=== PATIENT | female | born 1930 | race Asian ===

== ENCOUNTER 2018-09-18 10:07 | Inpatient (IN) | payer OTHER, MEDICARE ==
[~2018-09-18] VITALS: Ht 157.5 cm; Wt 49.9 kg
--- NOTE | 2018-09-18 10:07 | NUR ---
PT BIBA BLS TO ER BED 04
[2018-09-18 10:09] VITALS: BP 119/42
--- NOTE | 2018-09-18 10:31 | NUR ---
BIBA FROM [facility] FOR G TUBE REPLACEMENT. PER EMS PT PULL OUT G TUBE THIS AM. NEUROLOGICAL BASELINE. MED HX : HTN, DM, CAD, HYPERLIPIDEMIA, R HEMIPLEGIA, GASTROSTOMY, APHASIA, SIEZURE DISORDER.
[2018-09-18] MEDS ORDERED: NACL 0.9% 1,000 ML IV SCH (12:46)
[2018-09-18] MEDS ORDERED: ALBUTEROL 0.083% 2.5 MG/3 ML NEBU IH PRN (12:50)
[2018-09-18] MEDS ORDERED: ONDANSETRON 4 MG/2 ML VIAL IVP PRN (12:50)
[2018-09-18] MEDS ORDERED: MORPHINE SULFATE 2 MG/ML SYR IVP PRN (12:50)
[2018-09-18 13:13] LABS: BASOPHILS % (AUTO) 0.4 % (0.0-2.0); EOSINOPHILS # (AUTO) 0.5 K/uL (0-0.4); EOSINOPHILS % (AUTO) 6.6 % (0.0-4.0); HEMATOCRIT 35.6 % (36-48); HEMOGLOBIN 11.5 g/dL (12.0-16.0); LYMPHOCYTES # (AUTO) 1.7 K/uL (2.5-16.5); LYMPHOCYTES % (AUTO) 21.1 % (20.5-51.1); MEAN CORPUSCULAR HEMOGLOBIN 29 pg (27-31); MEAN CORPUSCULAR HGB CONC 32 g/dL (33-37); MEAN CORPUSCULAR VOLUME 89.9 fL (80-94); MONOCYTES # (AUTO) 0.6 K/uL (0.8-1.0); MONOCYTES % (AUTO) 7.2 % (1.7-9.3); NEUTROPHILS # (AUTO) 5.1 K/uL (1.8-7.7); NEUTROPHILS % (AUTO) 64.7 % (42.2-75.2); PLATELET COUNT (AUTO) 308 K/uL (140-450); RED BLOOD CELL COUNT(AUTO) 3.96 MIL/uL (4.20-5.40); RED CELL DISTRIBUTION WIDTH 16.8 % (11.6-13.7); WHITE BLOOD COUNT (AUTO) 7.9 K/uL (4.8-10.8)
[2018-09-18 13:31] LABS: ALBUMIN 3.1 g/dL (3.4-5.0); ANION GAP 9.7 (8-16); ASPARTATE AMINOTRANSFERASE 24 U/L (15-37); CARBON DIOXIDE 28.7 mmol/L (21-32); CHLORIDE 106 mmol/L (98-107); CREATININE 0.9 mg/dL (0.6-1.3); GLUCOSE 127 mg/dL (74-106); POTASSIUM 3.4 mmol/L (3.5-5.1); SODIUM SERUM 141 mmol/L (136-145); TOTAL BILIRUBIN 0.5 mg/dL (0.0-1.0); UREA NITROGEN, BLOOD 20 mg/dL (7-18)
[2018-09-18] MEDS ORDERED: KEP500L GT (13:34)
[2018-09-18] MEDS ORDERED: ASCO500T45 GT (13:34)
[2018-09-18] MEDS ORDERED: ATOR10TA GT (13:34)
[2018-09-18] MEDS ORDERED: FAMO10TA93 GT (13:34)
[2018-09-18] MEDS ORDERED: ASPI-1677 GT (13:34)
[2018-09-18] MEDS ORDERED: FURO-572 GT (13:34)
[2018-09-18] MEDS ORDERED: WARF-18 GT (13:34)
[2018-09-18] MEDS ORDERED: METO25TA GT (13:34)
[2018-09-18] MEDS ORDERED: LACT-2 (13:34)
[2018-09-18] MEDS ORDERED: LACT500C2 GT (13:34)
--- NOTE | 2018-09-18 14:19 | NUR ---
Patient will be admitted to care of DR LYNCH. Admited to TELE. Will go to room 108B. Belongings list completed. Report to ISIDRO AVILA.
[2018-09-18] MEDS ORDERED: LORazepam 2 MG/ML VIAL ONE (18:00)
--- NOTE | 2018-09-18 19:16 | NUR ---
RECEIVED REPORT FROM DAY SHIFT NURSE. PT SLEEPING IN BED. NO S/S OF PAIN OR SOB. PLATA CATH TUBING IN THE G-TUBE SITE. IV TO RIGHT FA #22G, D5NS AT 75 ML/HR INFUSING WELL. PT HAS RIGHT HEMIPLEGIA. SKIN INTACT. PT'S SON AT BEDSIDE. SAFETY PRECAUTION IN PLACE. CALL LIGHT WITHIN REACH.
--- NOTE | 2018-09-18 19:50 | NUR ---
DR. BELL CAME IN FOR INSERTION OF G-TUBE. PT TOLERATED PROCEDURE WELL. PT'S SON AT BEDSIDE. ABDOMINAL BINDER IN PLACE. ORDERED GASTROGRAFIN AND KUB.
--- NOTE | 2018-09-18 20:00 | NUR ---
CALLED RADIOLOGY FOR GASTROGRAFIN AND KUB ORDER. PER DANE, X-RAY TECH WENT TO ER AND SHE WILL LET HER KNOW ABOUT THE ORDER.
[2018-09-18] MEDS ORDERED: LORazepam 2 MG/ML VIAL IVP PRN (20:25)
[2018-09-18] MEDS ORDERED: INSULIN LISPRO SLIDING SCALE 100 UNITS/ML VIAL SUBQ PRN (20:30)
[2018-09-18] MEDS: DEXT 5% /NACL 0.9% 1,000 ML IV SCH (20:30)
--- NOTE | 2018-09-18 20:30 | NUR ---
CALLED RADIOLOGY TO FOLLOW UP GASTROGRAFIN AND KUB XRAY ORDER. PER HERVE BHAKTA SHE'S STILL BUSY IN THE ER. SHE'LL CALL ME WHAT TIME SHE CAN DO THE PROCEDURE.
[2018-09-18] MEDS: BLOOD GLUCOSE MONITORING 1 DEV DEV FS SCH (21:15)
--- NOTE | 2018-09-18 22:40 | NUR ---
X-RAY TECH IN THE ROOM FOR GASTROGRAFIN AND KUB AT BEDSIDE. PT TOLERATED PROCEDURE WELL.
--- NOTE | 2018-09-18 23:15 | NUR ---
DR. BELL MADE AWARE OF PT'S XRAY OF ABDOMEN RESULT. MD ORDERED TO START FEEDING TUBE OSMOLITE 1.2 ( PER PT'S RECORD FROM [facility], PT IS ON OSMOLITE 1.2) AT 30 ML/HR, H20 FLUSH 100 CC EVERY 4 HRS.
[2018-09-19] VITALS: BP 108/57
--- NOTE | 2018-09-19 00:50 | NUR ---
PER HOUSE SUP, WE ONLY HAVE OSMOLITE 1.5. TRIED TO CALL DR. BELL X 3 TIMES, NO ANSWER. CHARGE NURSE MADE AWARE. PER CN, WE CAN GIVE OSMOLITE 1.[address] CALL [address] BELL TOMORROW MORNING.
--- NOTE | 2018-09-19 01:00 | NUR ---
STARTED FEEDING OSMOLITE 1.5 AT 30 ML/HR, H20 FLUSH 100ML Q4HRS. ASPIRATION PRECAUTION IN PLACE.
--- NOTE | 2018-09-19 02:23 | NUR ---
PT AWAKE, APHASIC. NO S/S OF PAIN OR SOB. PT TOLERATING FEEDING WELL. PT KEPT DRY AND COMFORTABLE. ASPIRATION AND SAFETY PRECAUTIONS IN PLACE.
--- NOTE | 2018-09-19 04:30 | NUR ---
PT SLEEPING. RESP EVEN AND UNLABORED. NO S/S OF PAIN OR DISCOMFORT. PT TOLERATING FEEDING WELL.
[2018-09-19] MEDS: BLOOD GLUCOSE MONITORING 1 DEV DEV FS SCH ×4 (06:05→21:00)
[2018-09-19 06:17] LABS: BASOPHILS # (AUTO) 0.1 K/uL (0.00-0.22); EOSINOPHILS # (AUTO) 0.7 K/uL (0-0.4)
[2018-09-19 06:22] LABS: BASOPHILS % (AUTO) 0.8 % (0.0-2.0); HEMATOCRIT 35.2 % (36-48); HEMOGLOBIN 11.3 g/dL (12.0-16.0); LYMPHOCYTES # (AUTO) 2.4 K/uL (2.5-16.5); LYMPHOCYTES % (AUTO) 23.2 % (20.5-51.1); MEAN CORPUSCULAR HEMOGLOBIN 29 pg (27-31); MEAN CORPUSCULAR HGB CONC 32 g/dL (33-37); MEAN CORPUSCULAR VOLUME 90.8 fL (80-94); MONOCYTES # (AUTO) 0.9 K/uL (0.8-1.0); MONOCYTES % (AUTO) 8.6 % (1.7-9.3); NEUTROPHILS # (AUTO) 6.2 K/uL (1.8-7.7); NEUTROPHILS % (AUTO) 60.4 % (42.2-75.2); PLATELET COUNT (AUTO) 314 K/uL (140-450); RED BLOOD CELL COUNT(AUTO) 3.87 MIL/uL (4.20-5.40); RED CELL DISTRIBUTION WIDTH 17.2 % (11.6-13.7); WHITE BLOOD COUNT (AUTO) 10.2 K/uL (4.8-10.8)
--- NOTE | 2018-09-19 06:30 | NUR ---
BLOOD SUGAR CHECKED 122. NO INSULIN COVERAGE. CHECKED G-TUBE RESIDUAL 0 ML. FEEDING INFUSING WELL. ASPIRATION PRECAUTION IN PLACE.
[2018-09-19 06:51] LABS: ALBUMIN 2.9 g/dL (3.4-5.0); ANION GAP 11.4 (8-16); ASPARTATE AMINOTRANSFERASE 142 U/L (15-37); CARBON DIOXIDE 26.4 mmol/L (21-32); CHLORIDE 111 mmol/L (98-107); CREATININE 0.9 mg/dL (0.6-1.3); GLUCOSE 133 mg/dL (74-106); POTASSIUM 3.8 mmol/L (3.5-5.1); SODIUM SERUM 145 mmol/L (136-145); TOTAL BILIRUBIN 0.4 mg/dL (0.0-1.0); UREA NITROGEN, BLOOD 18 mg/dL (7-18)
--- NOTE | 2018-09-19 07:10 | NUR ---
ENDORSED PT TO DAY SHIFT NURSE. PT IN STABLE CONDITION.
--- NOTE | 2018-09-19 07:12 | NUR ---
RECEIVED BEDSIDE REPORT FROM LEGAL WRITING PROFESSOR NURSE. PATIENT IS SLEEPING ON BED AT THIS TIME. NO SIGNS OF DISTRESS NOTED. FLACC 0. SKIN INTACT, DRY AND CLEAN. IV TO LEFT FA 22G, PATENT AND INTACT, INFUSING PER MD ORDER. IV SITE CLEAN AND DRY. G-TUBE INFUSING PER MD ORDER, PATIENT TOLERATED WELL. SCD APPLIED. SAFETY MEASURES IN PLACE. BED IN LOW POSITION, CALL LIGHT WITHIN REACH.
--- NOTE | 2018-09-19 07:56 | NUR ---
PATIENT HAS BEEN SCREENED AND CATEGORIZED HIGH NUTRITION RISK. PATIENT WILL BE SEEN WITHIN 1-2 DAYS OF ADMISSION. 09/19/18-09/20/[address]
[2018-09-19 08:00] VITALS: BP 97/49
[2018-09-19 08:33] LABS: PROTHROMBIN TIME 12.3 secs (10.8-13.4)
[2018-09-19] MEDS: FAMOTIDINE 20 MG/2 ML VIAL IVP SCH (09:41)
--- NOTE | 2018-09-19 09:45 | NUR ---
ADMINISTERED MED PER MD ORDER. PT TOLERATED WELL. PT IS RESTING ON BED AT THIS TIME. NO SIGNS OF DISTRESS NOTED.
[2018-09-19] MEDS: DEXT 5% /NACL 0.9% 1,000 ML IV SCH (09:50)
--- NOTE | 2018-09-19 11:42 | NUR ---
09/19/18 INITIAL ASSESSMENT COMPLETED PLEASE REFER TO NUTRITION ASSESSMENT UNDER CARE ACTIVITY FOR ESTIMATED NUTRITIONAL NEEDS. 1. RECOMMEND GLUCERNA AT 45 ML/HR -THIS WILL PROVIDE 1296 KCAL AND 65 GM OF PROTEIN WHICH WILL MEET 100% OF ESTIMATED KCAL NEEDS AND 108% OF ESTIMATED PROTEIN NEEDS 2. RECOMMEND FREE WATER FLUSH [address] TO FOLLOW-UP 2-3 DAYS, HIGH RISK [address]
--- NOTE | 2018-09-19 13:51 | NUR ---
Residence Hall Director Note: Luis Angel Ziegler from [facility] , patient is on a 7 day bed hold and her son Mla Jiang is patient's health care decision maker.
--- NOTE | 2018-09-19 14:51 | NUR ---
CM NOTE PER CHARGE NURSE CHIQUI, AWAITING GI DOCTOR TO CLEAR PATIENT. PER [facility] JOSELO CRAFT PH# [phone], FOR [facility] AUTH# [id number]. PER KYLAH OF [facility], WHEN PATIENT IS READY FOR DISCHARGE, PATIENT CAN GO TO RM [address] REID. PER PATIENT'S SON ROBERT SAENZ PH# [phone], HE IS AGREEABLE FOR PATIENT TO GO BACK TO [facility]. SPOKE WITH SHAKEEL OF [facility] PH# [phone] TO SET UP PATIENT'S TRANSPORT GOING BACK TO [facility] ON WILL CALL. CHARGE NURSE CHIQUI AND DONALDO AVILA AWARE.
[2018-09-19 16:00] VITALS: BP 131/57
--- NOTE | 2018-09-19 16:00 | NUR ---
Per charge nurse Bebe, Dr. Mcguire gave discharge order for pt back to SNF. Order noted.
--- NOTE | 2018-09-19 17:50 | NUR ---
Left voicemail to son Mal re: discharge to SNF order. Son Esteban at bedside visiting; notified of voicemail left for Mal. Verbalized understanding & states he will check with his brother.
--- NOTE | 2018-09-19 18:02 | NUR ---
Spoke to MARGARITA Martino from [facility]. Full report given re: pt. Informed of pick-up time by [facility] @ 1999 per Bebe charge nurse.
--- NOTE | 2018-09-19 18:57 | NUR ---
Received call back from zohreh Resendez. Mal verbalized understanding & agree with discharge plan.
--- NOTE | 2018-09-19 19:20 | NUR ---
BEDSIDE REPORT GIVEN TO SUPPLIER DEVELOPMENT MANAGER NURSE FOR CONTINUITY OF CARE. PATIENT'S SON IS AT BEDSIDE. PATIENT IS IN A STABLE CONDITION.
--- NOTE | 2018-09-19 19:30 | NUR ---
RECEIVED BEDSIDE REPORT FROM DAY SHIFT RN, PATIENT IN BED, SON AT BEDSIDE. PLAN TO TRANSFER TO [facility] AT 1999.
--- NOTE | 2018-09-19 19:45 | NUR ---
SON ASKED IF CAN NOT CHECK BLOOD GLUCOSE DUE TO PATIENT IS LEAVING. WILL HOLD ACCU CHECK.
--- NOTE | 2018-09-19 21:30 | NUR ---
ALL D/C PAPERWORK SIGNED, PATIENT READY TO BE TRANSFERRED. PATIENT BEGAN TO CRY WHEN TOLD SHE IS GOING TO [facility], STARTED SHAKING AND BREATHING RAPIDLY. SON ASKED IF SHE CAN STAY FOR ONE MORE DAY SO HE CAN FIND SOMEWHERE FOR HER TO GO, HE DOES NOT WANT HER TO GO BACK TO [facility]. CALLED DR LYNCH, CALL BACK FROM DR REILLY HE STATED ITS OKAY SHE CAN STAY. CHARGE NURSE UGO GRIGSBY.
--- NOTE | 2018-09-19 22:30 | NUR ---
STARTED IV IN LEFT FA 22 G.
--- NOTE | 2018-09-19 23:00 | NUR ---
REPOSITIONED PATIENT FOR COMFORT WILL CONTINUE TO MONITOR.
[2018-09-20] VITALS: BP 148/70
--- NOTE | 2018-09-20 | NUR ---
PATIENT SLEEPING, BED ALARM ON, V/S TAKEN ALL WITHIN BASELINE.
--- NOTE | 2018-09-20 02:00 | NUR ---
PATIENT ASLEEP IN BED NO SIGNS OF DISTRESS, WILL CONTINUE TO MONITOR.
--- NOTE | 2018-09-20 05:30 | NUR ---
NO NEW FORMULA ON UNIT, PT G-TUBE INFUSING AT 30 ML/HR.
[2018-09-20] MEDS: BLOOD GLUCOSE MONITORING 1 DEV DEV FS SCH ×4 (06:20→20:02)
--- NOTE | 2018-09-20 07:35 | NUR ---
ENDORSED PATIENT TO DAY SHIFTY NURSE PATIENT STABLE.
--- NOTE | 2018-09-20 07:36 | NUR ---
Received bedside report from pm nurse Summer. Pt asleep, respirations even & nonlabored, FLACC 0. Call light within reach.
[2018-09-20 08:00] VITALS: BP 135/74
--- NOTE | 2018-09-20 09:06 | NUR ---
Employee Communications Intern Note: I called Patient's son Mal Cat Deidre , no answer, left message to call me back.
[2018-09-20] MEDS: FAMOTIDINE 20 MG/2 ML VIAL IVP SCH (09:11)
--- NOTE | 2018-09-20 09:15 | NUR ---
Route Sales Delivery Drivers Supervisor Note: I received a call from patient's son Mal Jiang , he stated he would like assistance with finding another shelter facility. He told me patient was at [facility] over 1 week prior to hospital admission. He stated prior to [facility] admission patient was living with her daughter. I faxed inquiry to [facility]. Per Yoli from [facility] , patient has been accepted. I informed Mal patient has been accepted at [facility]. He stated he would tour [facility]. He reported if he does not like [facility] he is in agreement with transferring patient back to [facility] upon discharge, case aide Rebeca made aware.
--- NOTE | 2018-09-20 09:30 | NUR ---
Pt awake, found to be removing blankets & pillows from her bed. Asked if pt feels hot, no response received, no signs of distress. Pt repositioned, covered her lower body with thin sheet, HOB kept elevated @ 30deg. GT intact with ongoing feeding. Abd binder in place. Call light within reach. Will continue to monitor.
--- NOTE | 2018-09-20 15:12 | NUR ---
CM NOTE PER [facility] JOSELO CRAFT # [phone], WHEN PATIENT IS GOING TO [facility], FOR [facility] AUTH# [id number]. CHARGE NURSE CRYSTAL AWARE. Addendum: 09/20/18 at 1521 by Rebeca Aguilar CM IEELIDA CRAFT MADE AWARE OF PATIENT'S SON TOURING [facility] AND TO DECIDE IF HE PREFERS [facility] OR [facility] FOR PATIENT TO GO TO. Addendum: 09/20/18 at 1522 by Rebeca Aguilar CM FAXED PT EVAL NOTES TO [facility]
[2018-09-20 16:00] VITALS: BP 128/86
--- NOTE | 2018-09-20 16:48 | NUR ---
Dental Hygienist Note: Per MARGARITA Claros, patient's son Mal Jiang would like patient to be transfer to [facility] . Per Yoli from [facility], patient can go to room 11A at their facility today, accepting physician is , MARGARITA Claros made aware.
--- NOTE | 2018-09-20 17:29 | NUR ---
ARRANGED TRANSPORT WITH [facility] AVAILABLE TIME IS 1000PM MARGARITA GRIGSBY.
--- NOTE | 2018-09-20 17:30 | NUR ---
Benji Resendez at bedside notified of discharge plans to Catlettair Lema with supervisor picking crew @ 10pm. Son verbalized understanding & agree with plan of care.
--- NOTE | 2018-09-20 19:05 | NUR ---
Report given to pm nurse Mckenzie.
--- NOTE | 2018-09-20 19:37 | NUR ---
RECEIVED REPORT FROM DONALDO NURSE, PATIENT IS AWAKE, ALERT, RESPIRATION EVEN AND UNLABORED. APPEARS IN NO PAIN. SKIN IS WARM AND DRY. G-TUBE IS IN PLACE AND NOTED. PLAN OF CARE REVIEWED AND DISCUSSED. ALL SAFETY MEASURES IN PLACE. BED IS IN LOW POSITION. CALL LIGHT WITHIN REACH.
--- NOTE | 2018-09-20 20:00 | NUR ---
LETICIA CASTAÑEDA GAVE REPORT TO JULIETA. AWAITING FOR DIRECTOR OF PUBLIC WORKS.
--- NOTE | 2018-09-20 23:15 | NUR ---
PT LEFT UNIT VIA GURNEY ACCOMPANIED BY [facility] PERSONEL AND SON, PT IN STABLE CONDITION, IV TAKEN OUT, CATH INTACT, WRIST BAND TAKEN OUT, PT ON ROOM AIR, NO SOB, ALL BELONGING WITH SON.
== END 2018-09-20 23:20 | DRG 252 ==
LOC: MED 10:07 → MTU 12:49
PROVIDERS: ADMIT Hospitalist; ATTEND Hospitalist
PROC: 0D20XUZ Change Feeding Device in Upper Intestinal Tract, External Approach (ICD-10-PCS; principal; 2018-09-18)
DX: K94.23 Gastrostomy malfunction (principal); G81.90 Hemiplegia, unspecified affecting unspecified side; E11.9 Type 2 diabetes mellitus without complications; R13.10 Dysphagia, unspecified; R47.01 Aphasia; E44.1 Mild protein-calorie malnutrition; I10 Essential (primary) hypertension; E78.5 Hyperlipidemia, unspecified; K21.9 Gastro-esophageal reflux disease without esophagitis; I25.10 Atherosclerotic heart disease of native coronary artery without angina pectoris; G89.4 Chronic pain syndrome; J44.9 Chronic obstructive pulmonary disease, unspecified; G40.909 Epilepsy, unspecified, not intractable, without status epilepticus; Z86.73 Personal history of transient ischemic attack (TIA), and cerebral infarction without residual deficits
CPT/HCPCS: 36415; 74241; 80053; 82948; 85025; 85610; 87081; 94640; 97530; 99285; J1815; J2060; J2270; J3490; J7030; J7042; J7613; Q0092; Q9967

== ENCOUNTER 2018-10-26 05:40 | Observation (INO) | payer MEDICARE, OTHER ==
[~2018-10-26] VITALS: Ht 157.5 cm; Wt 59.0 kg
[2018-10-26 05:40] VITALS: BP 169/84
[~2018-10-26 05:40] MED LIST: ASCO500T45 GT; ASPI-1677 GT; ATOR10TA GT; FAMO10TA93 GT; FURO-572 GT; KEP500L GT; LACT-2; LACT500C2 GT; METO25TA GT; WARF-18 GT
--- NOTE | 2018-10-26 05:40 | NUR ---
PT BIBA, BLS. TAKEN TO BED 4
--- NOTE | 2018-10-26 05:49 | NUR ---
EKG PERFORMED AT BEDSIDE, PT COVERED IN GOWN AND BLANKET DURING PROCEDURE
[2018-10-26] MEDS ORDERED: NACL 0.9% 1,000 ML IV SCH (05:51)
[2018-10-26] MEDS ORDERED: ONDANSETRON 4 MG/2 ML VIAL IVP ONE (05:55)
[2018-10-26] MEDS ORDERED: PANTOPRAZOLE 40 MG INJ VIAL IVP ONE (05:55)
--- NOTE | 2018-10-26 05:57 | NUR ---
PT BIBA FROM NURSING FACILITY FOR EVALUATION OF EPISODE OF COFFEE GROUND EMESIS X2. PT AAO X1, GCS 14, MUMBLING WORDS. ATTEMPTED TO FOLLWO COMMANDS. PUPILS PERRL 3/3 MM. RSPIATIONS EVEN AND UNLABORED, BL LUNG CLEAR. SKIN WARM/PINK/DRY, +PMSC. RT SIDE WEAKNESS, RUE CONTRACTION NOTED. PT BED BOUND. ABDOMEN SOFT, NON DISTENDED, ACTIVE BOWEL SOUND X4. GT TUBE INTACT. NO EPISODE OF VOMITTING AT THIS TIME. VSS, MADE AWARE OF PT STATUS. WILL CONTINUE TO MONITOR
[2018-10-26 06:28] LABS: BASOPHILS % (AUTO) 0.2 % (0.0-2.0); EOSINOPHILS # (AUTO) 0.5 K/uL (0-0.4); EOSINOPHILS % (AUTO) 4.1 % (0.0-4.0); HEMATOCRIT 40.7 % (36-48); HEMOGLOBIN 13.7 g/dL (12.0-16.0); LYMPHOCYTES # (AUTO) 1.9 K/uL (2.5-16.5); LYMPHOCYTES % (AUTO) 16.1 % (20.5-51.1); MEAN CORPUSCULAR HEMOGLOBIN 29 pg (27-31); MEAN CORPUSCULAR HGB CONC 34 g/dL (33-37); MEAN CORPUSCULAR VOLUME 87.1 fL (80-94); MONOCYTES # (AUTO) 0.8 K/uL (0.8-1.0); MONOCYTES % (AUTO) 6.7 % (1.7-9.3); NEUTROPHILS # (AUTO) 8.8 K/uL (1.8-7.7); NEUTROPHILS % (AUTO) 72.9 % (42.2-75.2); PLATELET COUNT (AUTO) 309 K/uL (140-450); RED BLOOD CELL COUNT(AUTO) 4.68 MIL/uL (4.20-5.40); RED CELL DISTRIBUTION WIDTH 15.5 % (11.6-13.7); WHITE BLOOD COUNT (AUTO) 12.1 K/uL (4.8-10.8)
--- NOTE | 2018-10-26 06:30 | NUR ---
TURN AND REPOSITION PT, SCARAL OPEN AREA NOTED. PICTURE TAKEN.
[2018-10-26 06:32] LABS: ALBUMIN 3.5 g/dL (3.4-5.0); ASPARTATE AMINOTRANSFERASE 22 U/L (15-37); CARBON DIOXIDE 30.6 mmol/L (21-32); CHLORIDE 103 mmol/L (98-107); GLUCOSE 153 mg/dL (74-106); POTASSIUM 3.6 mmol/L (3.5-5.1); SODIUM SERUM 144 mmol/L (136-145); TOTAL BILIRUBIN 0.4 mg/dL (0.0-1.0); UREA NITROGEN, BLOOD 23 mg/dL (7-18)
[2018-10-26 06:35] LABS: PROTHROMBIN TIME 10.1 secs (10.8-13.4)
--- NOTE | 2018-10-26 07:09 | NUR ---
RECIEVED REPORT FROM RORY AVILA.
--- NOTE | 2018-10-26 07:10 | NUR ---
REPORT GIVEN TO JERRI AVILA
[2018-10-26] MEDS ORDERED: METOCLOPRAMIDE 10 MG/2 ML INJ VIAL IVP ONE (07:15)
[2018-10-26] MEDS ORDERED: PANTOPRAZOLE 80 MG in NACL 0.9% 100 ML IV SCH (07:15)
--- NOTE | 2018-10-26 07:20 | NUR ---
PT VOMITING COFFEE GROUND EMESIS, ER MD NOTIFIED. PT IS WEAK AND PALE, VSS.
--- NOTE | 2018-10-26 07:50 | NUR ---
PT SON SIGNED INFORMED CONSENT FOR ABD/PELVIC CT WITH CONTRAST
--- NOTE | 2018-10-26 08:00 | NUR ---
UNABLE TO INSERT 20G IV IN AC FOR CT W/ CONTRAST. INFORMED CHARGE NURSE PEDRO PABLO, SHE WAS ABLE TO INSERT 20G IV IN L AC.
--- NOTE | 2018-10-26 08:27 | NUR ---
PT RETURNED FROM CT AT THIS TIME
--- NOTE | 2018-10-26 09:32 | NUR ---
PT STATING HER BUTTOCKS IS SORE. PULLED PT UP IN BED AND ADJUSTED HER ON HER R SIDE, AND RELIEVED PRESSURE WITH PILLOW. PT REPORTS 8/10 PAIN IN SACRAL REGION FROM PREVIOUSLY ACQUIRED PRESSURE SORE. ER NOTIFIED.
[2018-10-26] MEDS ORDERED: LORazepam 2 MG/ML VIAL IVP PRN (09:45)
[2018-10-26] MEDS ORDERED: ALBUTEROL 0.083% 2.5 MG/3 ML NEBU IH PRN (09:45)
[2018-10-26] MEDS ORDERED: ONDANSETRON 4 MG/2 ML VIAL IVP PRN (09:45)
[2018-10-26] MEDS ORDERED: MORPHINE SULFATE 4 MG/ML SYR IVP ONE (10:05)
[2018-10-26 10:15] VITALS: BP 153/64
--- NOTE | 2018-10-26 10:15 | NUR ---
RECEIVED PT FROM ER NURSE, JERRI, PT IS NON-AMBULATORY, BEDBOUND WITH RT SIDED PARALYSIS, ON FALL PRECAUTION, SIDE RAILS ARE UP AND CALL LIGHT WITHIN REACH. PT HAS IV LINES ON TH RT HAND G. 20 WITH PROTONIX INFUSING AT 10ML/HR AND ON LEFT AC G. 20 ON SALINE LOCK. PT IS APHASIC WITH SON ON THE BEDSIDE. PT IS ON TELE MONITORING. NO SIGN OF DISTRESS NOTED. WILL MONITOR PT.
--- NOTE | 2018-10-26 10:15 | NUR ---
Patient will be admitted to care of ANA PAULA FULTON. Admited to TELE VIA GURNEY WITH VSS. Will go to room 123B. Belongings list completed. Report to MARV AVILA.
[2018-10-26] MEDS: MORPHINE SULFATE 2 MG/ML SYR IVP PRN ×2 (11:43→16:06)
--- NOTE | 2018-10-26 11:50 | NUR ---
ORDERED MORPHINE 4MG FROM ER MD HARRIS WAS NOT GIVEN AND WAS PUT NON-ADMINISTERED IN EMAR AND THE MORPHINE 2MG ORDERED BY DR. LYNCH WAS THE ONE GIVEN TO PT FOR THE PAIN RATE 02/21, VITAL SIGNS CHECKED AND BP IS 143/75, PULSE IS 96, O2 SATURATION IS 96%. PT TOLERATED THE MEDICATION AND WILL MONITOR AND WILL RE-ASSESS PAIN IN AN HOUR.
[2018-10-26 12:00] VITALS: BP 143/75
--- NOTE | 2018-10-26 12:00 | NUR ---
PY IS AWAKE AND V/S TAKEN AND IS WITHIN LIMIT. NO VOMITING NOTED, NO SIGN OF DISTRESS NOTED. WILL MONITOR PT.
--- NOTE | 2018-10-26 13:00 | NUR ---
PT IS AWAKE WITH SON ON THE BEDSIDE, PT WAS REPOSITIONED AND CLEANED UP, ASSESSMENT DONE ON THE SKIN, NOTED TO HAVE A SACRAL ERYTHEMA, REINFORCED WITH OPTIFOAM DRESSING, PICTURE OF THE SACRAL ERYTHEMA WAS TAKEN ANDIS ATTACHED TO THE CHART. WILL MONITOR PT.
--- NOTE | 2018-10-26 15:00 | NUR ---
ASKED DR. LYNCH IF PROTONIX IV DRIP WILL BE CONTINUED AND MD SAID TO D/C IT, ACKNOWLEDGED AND WILL CARRY OUT VERBAL ORDER
[2018-10-26] MEDS ORDERED: OMEP20TC10 PEG (15:05)
[2018-10-26 15:23] LABS: HEMATOCRIT 39.3 % (36-48); HEMOGLOBIN 12.7 g/dL (12.0-16.0)
[2018-10-26 16:00] VITALS: BP 136/54
--- NOTE | 2018-10-26 16:06 | NUR ---
PT'S DAUGHTER SAID THAT PT IS I PAIN AND ASKED TO GIVE PT A PAIN MEDICATION. MORPHINE WAS GIVEN TO PT VIA IV PUSH AND V/S CHECKED PRIOR TO MEDICATION ADMINISTRATION. NO SIGN OF DISTRESS NOTED. WILL MONITOR PT.
[2018-10-26] MEDS ORDERED: WARFARIN 5 MG TAB GT SCH (17:00)
--- NOTE | 2018-10-26 17:21 | NUR ---
PT IS AWAKE NAD DAUGHTER ON THE BEDSIDE, G-TUBE VALVE WAS REPLACED WITH A NEW ONE, CHECKED PATENCY AND RESIDUAL, NO RESIDUAL NOTED, MEDICATION WAS GIVEN VIA G-TUBE AND PT TOLERATED IT. NO SIGN OF DISTRESS NOTED AND WILL MONITOR PT.
--- NOTE | 2018-10-26 18:05 | NUR ---
CALLED B[facility]E CASTAÑED[facility] AND GAVE REPORT TO ANDREINA ORR REGARDING THE STATUS OF THE PT. PT WILL BE GOING BACK TO RM 111-B. NO VOMITING NOTED UPON ADMISSION TO TELEMETRY UNIT. ANA. HDZ WAS INFORMED THAT PT HAD ANOTHER STAT H&H CHECK AND HGB IS 12.7 AND HCT IS 39.3. AND OTHER LAB VALUES ARE NORMAL.
--- NOTE | 2018-10-26 18:25 | NUR ---
DISCHARGED PT WITH DAUGHTER WITH THE [facility] PERSONNEL, PT IS STABLE AT THIS TIME, V/S ARE BP IS 136/54, PULSE IS 92, TEMP. IS 98.4, O2 SATURATION IS 96% AND RESPIRATION IS EVEN AT 18/MIN.
[2018-10-26] MEDS ORDERED: LACTOBACILLUS ACIDOPHILUS GT SCH (21:00)
[2018-10-26] MEDS ORDERED: ATORVASTATIN 20 MG TAB GT SCH (21:00)
[2018-10-26] MEDS ORDERED: ASCORBIC ACID 500 MG TAB GT SCH (21:00)
[2018-10-26] MEDS ORDERED: levETIRAcetam 100 MG/ML ORASYR GT SCH (21:00)
[2018-10-26] MEDS ORDERED: NON-FORMULARY ITEM (Famotidine (Famotidine) 20 MG) GT SCH (21:00)
[2018-10-26] MEDS ORDERED: FAMOTIDINE 20 MG TAB GT SCH (21:00)
[2018-10-26] MEDS ORDERED: METOPROLOL 25 MG TAB GT SCH (21:00)
[2018-10-27] MEDS ORDERED: ASPIRIN 81 MG TAB.CHEW PO SCH (09:00)
[2018-10-27] MEDS ORDERED: LACTOBACILLUS RHAMNOSUS GG 1 EACH CAP GT SCH (09:00)
[2018-10-27] MEDS ORDERED: FUROSEMIDE 40 MG/5 ML ORAL SOL UDC GT SCH (09:00)
== END 2018-10-26 18:25 ==
LOC: MED 05:40 → MTU 09:45
PROVIDERS: ADMIT Hospitalist; ATTEND Hospitalist
DX: R11.10 Vomiting, unspecified (principal); I69.320 Aphasia following cerebral infarction; I69.391 Dysphagia following cerebral infarction; R13.10 Dysphagia, unspecified; I48.2 Chronic atrial fibrillation; E78.5 Hyperlipidemia, unspecified; I10 Essential (primary) hypertension; K21.9 Gastro-esophageal reflux disease without esophagitis; E11.9 Type 2 diabetes mellitus without complications; Z93.1 Gastrostomy status
CPT/HCPCS: 36415; 71045; 74177; 80053; 85018; 85025; 85610; 85730; 86886; 86900; 86901; 87081; 93005; 94760; 96361; 96365; 96366; 96375; 96376; 99285; C9113; G0378; J2270; J2405; J2765; J7030; Q0092; Q9967

== ENCOUNTER 2019-07-10 03:05 | Emergency (ER) | payer MEDICARE, MEDICAID ==
[~2019-07-10] VITALS: Ht 157.5 cm; Wt 49.9 kg
[2019-07-10 03:05] VITALS: BP 173/109
[~2019-07-10 03:05] MED LIST changes: -ASPI-1677 GT; +ASPI-1884 GT; +OMEP20TC10 PEG
--- NOTE | 2019-07-10 03:05 | NUR ---
PT MOHIT SMITH. TAKEN TO BED 11
--- NOTE | 2019-07-10 03:08 | NUR ---
PT BIBA FROM [facility] WITH C/O A DISLODGED GTUBE. PER EMT, BAILEE CASTAÑEDA TRIED PUTTING G TUBE BACK IN BUT GOT RESISTANCE AND THEN SITE STARTED BLEEDING. NO ACTIVE BLEEDING AT THIS TIME. PT CRYING, BUT BASELINE PER EMT. PT RESPONDS TO NAME, NONVERBAL. VSS. MEDHX: DM, ANXIETY, HLD ALLERGIES: NKA
--- NOTE | 2019-07-10 03:18 | NUR ---
DR NAGY PERFORMED G TUBE REPLACED. PT TOLERATED PROCEDURE WELL.
--- NOTE | 2019-07-10 03:57 | NUR ---
Chris sood in ED - 07/10/19 at 0435 by DANIAL X-Ray at bedside.
--- NOTE | 2019-07-10 03:57 | NUR ---
XRAY AT BEDSIDE
--- NOTE | 2019-07-10 04:50 | NUR ---
PT LAYING IN BED, NO CRYING AT THIS TIME. SIDE RAILS X2, SEIZURE PADS ON BED. VSS WILL CONTINUE TO MONITOR.
[2019-07-10] MEDS ORDERED: HALOPERIDOL IM 5 MG/ML VIAL IM ONE (05:55)
--- NOTE | 2019-07-10 07:00 | NUR ---
PT RESTING IN BED CALM, RR EVEN AND UNLABORED, VISIBLE RISE AND FALL OF THE CHEST. VSS. WILL CONTINUE TO MONITOR.
--- NOTE | 2019-07-10 07:05 | NUR ---
REPORT GIVEN TO MARGARITA FONSECA. TRANSFER OF CARE AT THIS TIME.
--- NOTE | 2019-07-10 07:06 | NUR ---
RECIEVED REPORT FROM MARGARITA BARRAGAN. WILL CONT CARE AT THIS TIME.
[2019-07-10 10:17] VITALS: BP 124/71
--- NOTE | 2019-07-10 10:31 | NUR ---
GAVE DISCHARGE INSTRUCTIONS TO TRANSPORTATION AND ALSO CALLED BAILEE CASTAÑED[facility] AND GAVE REPORT TO JASMIN, FLY SETTER. Patient discharged with v/s stable. Written and verbal after care instructions given and explained. Ambulance Transport with to home. All questions addressed prior to discharge. Advised to follow up with PMD.
== END 2019-07-10 10:31 ==
LOC: MED 03:05
DX: Z43.1 Encounter for attention to gastrostomy (principal); I10 Essential (primary) hypertension; K21.9 Gastro-esophageal reflux disease without esophagitis; E11.9 Type 2 diabetes mellitus without complications; Z79.899 Other long term (current) drug therapy; Z79.82 Long term (current) use of aspirin
CPT/HCPCS: 43762; 74241; 96372; 99284; J1630; Q0092

== ENCOUNTER 2019-07-11 15:07 | Emergency (ER) | payer MEDICARE, MEDICAID ==
[~2019-07-11] VITALS: Ht 149.9 cm; Wt 54.9 kg
--- NOTE | 2019-07-11 15:12 | NUR ---
Note undone in EDM - 07/11/19 at 1815 by MEDOF 55 Y/O MALE PRESENTED WITH C/C OF L THUMB PAIN DUE TO TRAUMA, 05/24, PRESSURE SENSATION. PER PT 2 WEEKS AGO PT CUT THUMB WITH SAW WHILE WORKING, CLEANED FINGER AND CONT TO WORK, ONE WEEK AGO HE HIT SAME THUMB WITH HAMMER AND WENT TO DR WHO PRESCRIBED ABX. PER PATIENT SQUEEZED THUMB AND YELLOW MATTER CAME OUT. PT HAS NKA. NO MEDICAL HX. NO MEDS ON REG BASIS. LAST ORAL INTAKE THIS MORNING, TOLERATED WELL. SIDE RAILS IN PLACE, BED LOW POSITION.
--- NOTE | 2019-07-11 15:12 | NUR ---
89 Y/O FEMALE BIBA FROM [facility] DUE TO G TUBE DISFUNCTION. PER EMS PT WAS AT [facility] YESTERDAY FOR SAME REASON; PER FACILITY G-TUBE LEAKS AND BLEEDS. CURRENT ASSESSMENT ON GTUBE, SCANT 5% BLOOD ON DRESSING, NO LEAKING NOTED. PATIENT UNABLE TO SPEAK. PER EMS, PT NKA. MEDICAL HX OF STROKE, HTN, DM. PATIENT ON REG DAILY MEDICATIONS. PAPERWORK GIVEN AND PUT ON FOLDER. CHRISTIANO RIG 1240 BROUGHT PT.
[2019-07-11 15:13] VITALS: BP 130/86
--- NOTE | 2019-07-11 15:26 | NUR ---
FLUSHED PERFORMED SLIGHT LEAKING NOTED; NO BLEEDING NOTED. FLUSH SMOOTH WITH NO RESISTANCE. DRESSING CHANGED TO MONITOR FOR ANY CHANGES.
--- NOTE | 2019-07-11 15:50 | NUR ---
Patient appears to be resting comfortably in bed. Vital Signs within normal limits. Respirations even and unlabored. Will continue to monitor.
--- NOTE | 2019-07-11 16:56 | NUR ---
XRAY AT BEDSIDE, CONTRAST GIVEN BY RN, XRAY TAKEN
--- NOTE | 2019-07-11 17:23 | NUR ---
PT REPOSITIONED FOR COMFORT. VSS. WILL CONTINUE TO MONITOR.
--- NOTE | 2019-07-11 18:22 | NUR ---
Spoke to receiving facility [facility]. MARGARITA Gunter notified. PT will be sent back to facility.
--- NOTE | 2019-07-11 18:44 | NUR ---
PER MD JEROME, PT IS OK FOR DISCHARGE. LIGHT RED GASTRIC RESIDUAL IS NOTED, MD AWARE AND RECOMMENDS FOLLOWING UP WITH GI.
--- NOTE | 2019-07-11 18:52 | NUR ---
SHIRA WADDELL PLACED PER FACILITIES REQUEST. AWARE/NOTIFIED.
--- NOTE | 2019-07-11 19:00 | NUR ---
[facility] FOR TRANSPORTATION 30 MIN.
--- NOTE | 2019-07-11 19:10 | NUR ---
REPORT GIVEN TO IRMA AVILA
--- NOTE | 2019-07-11 19:23 | NUR ---
PT PRESENTSTO ED WITH G-TUBE MALFUNCTION. G- TUBE IN PLACE, NO DRAINAGE NOTED AROUND G-TUBE, DRESSING DRY AND INTACTED, G-TUBE FLUSHED WITH 20ML OF STERIL WATER. PT APPEARS TO BE IN NO DISTRESS. ABDOMINAL BINDER PLACED OVER G-TUBE. PT TURNED TO LEFT SIDE, PILLOW PLACED UNDER LEFT SIDE.
--- NOTE | 2019-07-11 19:29 | NUR ---
PT BEING TRANSFERED BACK TO [facility]. [employer] [facility] [employer] TRANPORTING. ALL BELONGINGS SENT WITH PATIENT. MARIPOSA RN AND NOAH RN SIGNED FOR PT DC. PT UNABLE TO SIGN. PT UNABLE TO MOVE UPPER EXTREMITITES. REPORT CALLED TO [facility] BY DAY SHIFT NURSE MATTEO. Patient discharged with v/s stable. Written and verbal after care instructions given and explained TO [facility]. Ambulance Transport with to long term. All questions addressed prior to discharge. Advised to follow up with PMD.
[2019-07-11 19:33] VITALS: BP 140/82
== END 2019-07-11 19:29 | disposition home or self-care (01) ==
LOC: MED 15:07
DX: K94.23 Gastrostomy malfunction (principal); I69.359 Hemiplegia and hemiparesis following cerebral infarction affecting unspecified side; K59.00 Constipation, unspecified; E11.9 Type 2 diabetes mellitus without complications; I10 Essential (primary) hypertension
CPT/HCPCS: 74018; 99283; Q9967

== ENCOUNTER 2019-09-20 16:57 | Emergency (ER) | payer MEDICARE, MEDICAID ==
[~2019-09-20] VITALS: Ht 152.4 cm; Wt 54.4 kg
--- NOTE | 2019-09-20 16:57 | NUR ---
Patient MOHIT BLS from SNF, transferred to bed 10. RN evaluating patient at bedside.
--- NOTE | 2019-09-20 17:00 | NUR ---
89 Y/O FEMALE BIBA BLS FROM [facility] S/P DISPLACING G-TUBE AROUND 1500 TODAY. PER EMS, FACILITY COULD NOT ADVANCE GTUBE. ABD SOFT, ROUND, NONTENDER. BLEEDING CONTROLLED AT SITE. PT AGITATED AND COMBATIVE UPON ARRIVAL. VSS. MEDHX: SEE LIST ALLERGIES: NKA
[2019-09-20 17:03] VITALS: BP 130/60
--- NOTE | 2019-09-20 17:08 | NUR ---
DR HARRIS AT BEDSIDE REPLACING G-TUBE. SUCCESSFUL INSERTION. PT TOLERATED WELL
--- NOTE | 2019-09-20 17:13 | NUR ---
PT PLACED IN SOFT 4 POINT RESTRAINTS DUE TO AGITATION AND FALL RISK.
--- NOTE | 2019-09-20 17:18 | NUR ---
installation and service technician at bedside.
[2019-09-20] MEDS ORDERED: LORazepam 2 MG/ML VIAL IM ONE (17:35)
--- NOTE | 2019-09-20 18:01 | NUR ---
PT LESS AGITATED S/P ATIVAN
--- NOTE | 2019-09-20 18:01 | NUR ---
[facility] AT BEDSIDE TO TRANSFER PT BACK TO [facility]
[2019-09-20 18:02] VITALS: BP 130/60
--- NOTE | 2019-09-20 18:02 | NUR ---
Patient discharged with v/s stable. Written and verbal after care instructions given and explained. Patient verbalized understanding. Ambulance Transport with to correction. All questions addressed prior to discharge. Advised to follow up with PMD.
== END 2019-09-20 18:02 ==
LOC: MED 16:57
DX: Z46.59 Encounter for fitting and adjustment of other gastrointestinal appliance and device (principal); E11.9 Type 2 diabetes mellitus without complications; K21.9 Gastro-esophageal reflux disease without esophagitis; Z79.899 Other long term (current) drug therapy; Z79.82 Long term (current) use of aspirin; I11.0 Hypertensive heart disease with heart failure; Z86.73 Personal history of transient ischemic attack (TIA), and cerebral infarction without residual deficits
CPT/HCPCS: 43762; 74240; 96372; 99284; J2060; Q0092

== ENCOUNTER 2019-11-06 20:41 | Emergency (ER) | payer MEDICARE, MEDICAID ==
[~2019-11-06] VITALS: Ht 167.6 cm; Wt 54.4 kg
[2019-11-06 20:49] VITALS: BP 109/35
[2019-11-06 21:45] LABS: BASOPHILS # (AUTO) 0.1 K/uL (0.00-0.22); BASOPHILS % (AUTO) 0.8 % (0.0-2.0); EOSINOPHILS # (AUTO) 0.3 K/uL (0-0.4); EOSINOPHILS % (AUTO) 3.2 % (0.0-4.0); HEMATOCRIT 34.2 % (36-48); HEMOGLOBIN 11.1 g/dL (12.0-16.0); LYMPHOCYTES # (AUTO) 2.4 K/uL (2.5-16.5); LYMPHOCYTES % (AUTO) 28.7 % (20.5-51.1); MEAN CORPUSCULAR HEMOGLOBIN 30 pg (27-31); MEAN CORPUSCULAR HGB CONC 33 g/dL (33-37); MONOCYTES # (AUTO) 0.7 K/uL (0.8-1.0); NEUTROPHILS # (AUTO) 4.8 K/uL (1.8-7.7); NEUTROPHILS % (AUTO) 58.3 % (42.2-75.2); PLATELET COUNT (AUTO) 275 K/uL (140-450); RED BLOOD CELL COUNT(AUTO) 3.71 MIL/uL (4.20-5.40); RED CELL DISTRIBUTION WIDTH 13.7 % (11.6-13.7); WHITE BLOOD COUNT (AUTO) 8.2 K/uL (4.8-10.8)
[2019-11-06 21:59] LABS: PROTHROMBIN TIME 9.9 secs (10.8-13.4)
[2019-11-06 22:00] LABS: ALBUMIN 3.3 g/dL (3.4-5.0); ANION GAP 9.8 (8-16); ASPARTATE AMINOTRANSFERASE 15 U/L (15-37); CARBON DIOXIDE 32.7 mmol/L (21-32); CHLORIDE 104 mmol/L (98-107); CREATININE 0.9 mg/dL (0.6-1.3); GLUCOSE 95 mg/dL (74-106); POTASSIUM 3.5 mmol/L (3.5-5.1); SODIUM SERUM 143 mmol/L (136-145); TOTAL BILIRUBIN 0.9 mg/dL (0.0-1.0); UREA NITROGEN, BLOOD 26 mg/dL (7-18)
[2019-11-06] MEDS ORDERED: LORazepam 2 MG/ML VIAL IM ONE (22:40)
[2019-11-06] MEDS ORDERED: NACL 0.9% 500 ML IV ONE (22:45)
[2019-11-07] MEDS ORDERED: LORazepam 2 MG/ML VIAL IVP ONE ×2 (00:20→04:30)
[2019-11-07] MEDS ORDERED: diphenhydrAMINE 50 MG/ML VIAL IVP ONE (00:45)
[2019-11-07] MEDS ORDERED: HALOPERIDOL IM 5 MG/ML VIAL IM ONE ×2 (00:45→03:55)
[2019-11-07] MEDS ORDERED: NACL 0.9% 500 ML IV ONE (06:45)
[2019-11-07 11:40] VITALS: BP 128/69
== END 2019-11-07 11:40 | disposition home or self-care (01) ==
LOC: MED 20:41
DX: S30.1XXA Contusion of abdominal wall, initial encounter (principal); I48.91 Unspecified atrial fibrillation; E11.9 Type 2 diabetes mellitus without complications; K21.9 Gastro-esophageal reflux disease without esophagitis; I10 Essential (primary) hypertension; Z79.01 Long term (current) use of anticoagulants; Z86.73 Personal history of transient ischemic attack (TIA), and cerebral infarction without residual deficits; Z79.82 Long term (current) use of aspirin; Z79.899 Other long term (current) drug therapy; X58.XXXA Exposure to other specified factors, initial encounter; Y93.89 Activity, other specified; Y92.89 Other specified places as the place of occurrence of the external cause; Y99.8 Other external cause status
CPT/HCPCS: 36415; 74177; 80053; 85025; 85610; 96372; 96374; 96375; 99285; J1200; J1630; J2060; J7030; Q9967

== ENCOUNTER 2019-11-09 00:39 | Inpatient (IN) | payer MEDICAID, MEDICARE ==
[~2019-11-09] VITALS: Ht 154.9 cm; Wt 54.0 kg
--- NOTE | 2019-11-09 00:39 | NUR ---
PT MOHIT ALS. TAKEN TO BED 10
[2019-11-09 00:40] VITALS: BP 125/45
--- NOTE | 2019-11-09 00:46 | NUR ---
RT AT BEDSIDE.
[2019-11-09] MEDS ORDERED: NACL 0.9% 500 ML IV ONE ×3 (00:50→04:40)
--- NOTE | 2019-11-09 01:00 | NUR ---
89 Y/O FEMALE BIBA FROM [facility] C/O TACHYPNEA AND HYPOXIA X 2300 TODAY. PT IS ON 4.5L NC WITH SPO2 AT 100%. LUNG SOUNDS CLEAR ALL THROUGHOUT. SOB, LABORED AND EVEN BREATHING NOTED. NO USE OF ACCESSORY MUSCLE. VSS. A-FIB RHYTHM PRESENT. REGULARLY IRREGULAR PULSE PRESENT. CAP REFILL < 3. SKIN WARM TO TOUCH. PMH: SZ, HTN, GERD,HYPERLIPIDEMIA, ANGINA PERCTORIS, VITMIN DEFIENCY, STROKE, DM, GASTROSTOMY MALFUNCTION, ANXIETY, CONSTIPATION, GI BLEED, MDD, OSTEOPORSIS, CELLULITIS. NKA.
[2019-11-09 01:01] LABS: BASOPHILS # (AUTO) 0.1 K/uL (0.00-0.22); BASOPHILS % (AUTO) 0.5 % (0.0-2.0); EOSINOPHILS # (AUTO) 0.2 K/uL (0-0.4); EOSINOPHILS % (AUTO) 1.5 % (0.0-4.0); HEMATOCRIT 33.7 % (36-48); HEMOGLOBIN 11.2 g/dL (12.0-16.0); LYMPHOCYTES # (AUTO) 1.6 K/uL (2.5-16.5); MEAN CORPUSCULAR HEMOGLOBIN 31 pg (27-31); MEAN CORPUSCULAR HGB CONC 33 g/dL (33-37); MONOCYTES # (AUTO) 0.9 K/uL (0.8-1.0); MONOCYTES % (AUTO) 8.7 % (1.7-9.3); NEUTROPHILS # (AUTO) 7.8 K/uL (1.8-7.7); NEUTROPHILS % (AUTO) 74.3 % (42.2-75.2); PLATELET COUNT (AUTO) 293 K/uL (140-450); RED BLOOD CELL COUNT(AUTO) 3.66 MIL/uL (4.20-5.40); WHITE BLOOD COUNT (AUTO) 10.4 K/uL (4.8-10.8)
--- NOTE | 2019-11-09 01:01 | NUR ---
PARAMEDICS STATE THAT THE STAFF FROM [facility] SAID SHE REMOVED HER G-TUBE AT 1900 ON 11/08/19.
[2019-11-09 01:17] LABS: ALBUMIN 3.8 g/dL (3.4-5.0); ANION GAP 16.6 (8-16); ASPARTATE AMINOTRANSFERASE 27 U/L (15-37); CARBON DIOXIDE 24.9 mmol/L (21-32); CHLORIDE 107 mmol/L (98-107); GLUCOSE 119 mg/dL (74-106); POTASSIUM 4.5 mmol/L (3.5-5.1); SODIUM SERUM 144 mmol/L (136-145); TOTAL BILIRUBIN 1.2 mg/dL (0.0-1.0); UREA NITROGEN, BLOOD 17 mg/dL (7-18)
--- NOTE | 2019-11-09 01:18 | NUR ---
XR AT BEDSIDE.
[2019-11-09 01:20] LABS: PROTHROMBIN TIME 10.6 secs (10.8-13.4)
[2019-11-09] MEDS ORDERED: DILTIAZEM 25 MG/5 ML VIAL IVP ONE (01:25)
[2019-11-09] MEDS ORDERED: IPRATROPIUM 0.02% 0.5 MG/2.5 ML NEBU INH ONE (01:25)
--- NOTE | 2019-11-09 01:42 | NUR ---
Respiratory Therapist at bedside for respiratory intervention.
[2019-11-09] MEDS ORDERED: LORazepam 2 MG/ML VIAL IVP ONE (01:45)
--- NOTE | 2019-11-09 02:12 | NUR ---
PT TAKEN TO CT
--- NOTE | 2019-11-09 02:43 | NUR ---
PT RETURNED FROM CT
[2019-11-09] MEDS ORDERED: LOPE2CAP5 PO (03:31)
[2019-11-09] MEDS ORDERED: DOCU-299 PO (03:31)
[2019-11-09] MEDS ORDERED: DULO20EC PO (03:31)
[2019-11-09] MEDS ORDERED: CALC-53 PO (03:31)
[2019-11-09] MEDS ORDERED: PAX10 PO (03:31)
[2019-11-09] MEDS ORDERED: DEXTROSE 5% IV ONE (04:50)
[2019-11-09] MEDS ORDERED: VANCOMYCIN IV ONE (04:50)
[2019-11-09] MEDS ORDERED: PIPERACILLIN/TAZOBACTAM 3.375 GM in DEXTROSE 5% 50 ML IV ONE (04:50)
[2019-11-09] MEDS ORDERED: PIPERACILLIN/TAZOBACTAM 3.375 GM VIAL IV ONE (04:56)
[2019-11-09] MEDS ORDERED: VANCOMYCIN 1,000 MG VIAL ONE (05:19)
[2019-11-09] MEDS ORDERED: WATER STERILE 20 ML MC ONE (05:28)
[2019-11-09] MEDS ORDERED: ALBUTEROL SULFATE/IPRATROPIU 3 ML SOL IH PRN (06:15)
[2019-11-09] MEDS ORDERED: FAMOTIDINE 20 MG TAB GT SCH (06:25)
--- NOTE | 2019-11-09 06:30 | NUR ---
Dr. Majano examining patient.
[2019-11-09] MEDS ORDERED: ACETAMINOPHEN 325 MG TAB PO PRN (06:35)
[2019-11-09] MEDS ORDERED: MORPHINE SULFATE 2 MG/ML SYR IVP PRN (06:35)
[2019-11-09] MEDS ORDERED: LORazepam 2 MG/ML VIAL IM/IVP PRN (06:35)
[2019-11-09] MEDS ORDERED: DOCUSATE SODIUM 100 MG GELCAP PO PRN (06:35)
[2019-11-09] MEDS ORDERED: ZOLPIDEM 5 MG TAB PO PRN (06:35)
[2019-11-09] MEDS ORDERED: ONDANSETRON 4 MG/2 ML VIAL IM/IVP PRN (06:35)
[2019-11-09] MEDS ORDERED: HYDROcodone/APAP 5/325 MG 1 TAB TAB PO PRN (06:35)
--- NOTE | 2019-11-09 06:50 | NUR ---
Patient will be admitted to care of DR. REA. Admited to TELE. Will go to room 107A. Belongings list completed. Report to MARGARITA LIGHT.
[2019-11-09 07:00] VITALS: BP 117/50
[2019-11-09 07:00] LABS: APPEARANCE,URINE CLEAR (CLEAR); BILIRUBIN,URINE NEGATIVE (NEGATIVE); BLOOD, URINE NEGATIVE (NEGATIVE); COLOR,URINE YELLOW (YELLOW); LEUKOCYTE ESTERASE ,URINE NEGATIVE (NEGATIVE); NITRITE, URINE POSITIVE (NEGATIVE); UGLUCOSE NEGATIVE (NEGATIVE)
--- NOTE | 2019-11-09 07:00 | NUR ---
RECEIVED PT. FROM DOUBLE END TRIMMER NURSE, KULDEEP. PT. IS ALERT AND IN BED. IV ON THE LEFT FOREARM 20G WITH NS RUNNING AT 165ML/HR. PT. IS ON 6L/MIN O2 VIA NC, PT. IS IN LABORED, SHALLOW BREATHING WITH O2 STAT OF 98%. SIGNS OF DISTRESS NOTED. G-TUBE PRESENT AND IS FLUSHING. MD IS AWARE. FALL AND SEIZURE PRECAUTIONS INITIATED. CALL LIGHT WITHIN REACH. WILL CONTINUE TO MONITOR.
[2019-11-09 07:25] LABS: RBC,URINE 0 /HPF (0-5); URINE AMORPHOUS URATE 1+ /HPF (None Seen); WBC,URINE 0-5 /HPF (0-5)
[2019-11-09 07:54] LABS: MAGNESIUM 2.3 mg/dL (1.8-2.4); PHOSPHORUS 3.7 mg/dL (2.5-4.9); THYROID STIMULATING HORMONE 1.14 uIU/mL (0.34-3.74)
[2019-11-09] MEDS: NACL 0.9% 1,000 ML IV SCH ×2 (08:31→21:38)
--- NOTE | 2019-11-09 08:46 | NUR ---
PATIENT HAS BEEN SCREENED AND CATEGORIZED HIGH NUTRITION RISK. PATIENT WILL BE SEEN WITHIN 1-2 DAYS OF ADMISSION. 11/09/19-11/10/[address]
--- NOTE | 2019-11-09 08:46 | NUR ---
DR. ATKINSON CALLED, INFORMED THAT XRAY WITH CONTRAST IS NOT DONE DUE TO LACK OF EXTENSION FROM G-TUBE. INFORMED THAT GT MEDICATIONS WERE NOT GIVEN WELL. NEW ORDERS FOR KEPPRA IV WILL BE PLACED BY DR. ATKINSON. WILL FOLLOW UP WITH BAILEE CASTAÑEDA. WILL CONTINUE TO MONITOR.
[2019-11-09] MEDS ORDERED: levETIRAcetam 100 MG/ML ORASYR GT SCH (09:00)
[2019-11-09] MEDS ORDERED: DULoxetine 30 MG CAPDR PO SCH (09:00)
--- NOTE | 2019-11-09 09:10 | NUR ---
X-RAY WITH CONTRAST ATTEMPTED ON PATIENT. DIFFICULTY ADMINISTERING CONTRAST DUE TO LACK OF CONNECTOR ON G-TUBE. WILL CONTACT BAILEE CASTAÑEDA FOR CONNECTOR.
[2019-11-09] MEDS ORDERED: INSULIN LISPRO SLIDING SCALE 100 UNITS/ML VIAL SUBQ PRN (09:20)
[2019-11-09] MEDS ORDERED: DEXTROSE 50% 50 ML SYR IVP PRN (09:20)
[2019-11-09] MEDS: ASCORBIC ACID 500 MG TAB GT SCH ×2 (10:42→21:35)
[2019-11-09] MEDS: LACTOBACILLUS RHAMNOSUS GG 1 EACH CAP PO SCH (10:43)
[2019-11-09] MEDS: CALCIUM CARB/VIT-D 500 MG/200 IU 1 TAB PO SCH (10:43)
[2019-11-09] MEDS: FUROSEMIDE 20 MG TAB GT SCH (10:44)
[2019-11-09] MEDS: ASPIRIN 81 MG TAB.CHEW GT SCH (10:44)
[2019-11-09] MEDS: DOCUSATE SODIUM 100 MG GELCAP PO SCH ×2 (10:44→21:36)
[2019-11-09] MEDS: PARoxetine 10 MG TAB PO SCH (10:45)
[2019-11-09] MEDS: METOPROLOL 25 MG TAB GT SCH ×2 (10:45→21:36)
[2019-11-09] MEDS: levETIRAcetam 500 MG in NACL 0.9% 100 ML IV SCH ×2 (10:45→21:37)
--- NOTE | 2019-11-09 11:00 | NUR ---
XRAY WITH CONTRAST IN THE ABDOMEN, DONE. DR. ATKINSON REQUESTED TO RETRACT PT'S G-TUBE BY 1-2CM. WILL FOLLOW THROUGH
[2019-11-09] MEDS ORDERED: ALUMINUM HYD/MAG/SIMETHICONE 30 ML UDC PO SCH (11:10)
[2019-11-09 12:00] VITALS: BP 113/64
[2019-11-09] MEDS: BLOOD GLUCOSE MONITORING 1 DEV DEV FS SCH ×3 (12:02→21:35)
--- NOTE | 2019-11-09 12:30 | NUR ---
XRAY WITH ABDOMEN CONTRAST DONE AGAIN. WILL CONTINUE TO MONITOR.
--- NOTE | 2019-11-09 13:00 | NUR ---
AFTERNOON MEDICATIONS GIVEN. NO SIGNS OF DISTRESS NOTED. WILL CONTINUE TO MONITOR.
--- NOTE | 2019-11-09 13:19 | NUR ---
Production Packager Note: Basic Screen: Yes High Risk DC Screen [place]: ROBERT SAENZ Home Relationship: SON Pre-Admission Living Arrangements: SNF Other: [facility] Prior ADL Total/Dependent Current Home Health Name/Tel: N/A Current DME/02 Name/Tel: HOSPITAL BED Current Hospice Name/Tel: N/A Current Dialysis Name/Tel: N/A Healthcare Decision Maker: Next of Kin Other: ROBERT SAENZ Advance Directive No Physician Orders for Life Sustaining Treatment Form No Patient/Family Have Educational Needs No Discipline: Case Mgt/Social Svcs Tentative Discharge Plan/Destination: SNF/ECF [facility] Will require assistance post discharge: No Referred to Heating And Refrigeration Inspector: No Tentative Discharge Plan Summary: Patient is an 89-year-old female admitted for aspiration pneumonia. Patient has PMHX of cebrebrovascular accident, aphasia, dysphagia w/ gtube, diabetes, GERD, hypertension, seizure disorder, and dyslipedemia. Patient was admitted from [facility]. SW contacted Lisa from [facility] [phone]. [facility]f patient and is on a bed hold. Patient is alert at baseline but not oriented, [facility]. Tentative discharge plan is for patient to return to [facility]. No further needs identified. Signature: JACQUELINE Flores Date: Nov 09, 2019 Time: 13:17
[2019-11-09] MEDS: ALBUTEROL SULFATE/IPRATROPIU 3 ML SOL IH SCH ×2 (13:20→19:19)
[2019-11-09] MEDS: PIPERACILLIN/TAZOBACTAM 3.375 GM in DEXTROSE 5% 50 ML IV SCH ×2 (13:52→17:19)
--- NOTE | 2019-11-09 14:39 | NUR ---
11/09/19 RD INITIAL ASSESSMENT COMPLETED PLEASE REFER TO NUTRITION ASSESSMENT UNDER CARE ACTIVITY FOR ESTIMATED NUTRITIONAL NEEDS. 1. IF/WHEN MEDICALLY STABLE BEGIN TUBE FEEDING WITH GLUCERNA 1.2@ 50 ML/HR X 24 HR 2. RECOMMEND FREE WATER FLUSH OF 80 ML Q4H 3. IF PATIENT IS ABLE TO FOLLOW AN ORAL DIET CONSIDER SWALLOW EVALUATION PTS PAST DIET IS MECH SOFT WITH NECTAR THICK LIQUIDS 4. RD TO FOLLOW-UP 2-3 DAYS, HIGH RISK CHAZ BOONE RD
--- NOTE | 2019-11-09 15:30 | NUR ---
CONTACTED COOK HELPER VEGETABLE FOR G-TUBE PUMP FEEDING.
[2019-11-09 16:00] VITALS: BP 134/31
[2019-11-09] MEDS: WARFARIN 1 MG TAB PO SCH (17:28)
--- NOTE | 2019-11-09 19:30 | NUR ---
ENDORSED PT. TO DIRECTOR DIGITAL NURSE FOR CONTINUITY OF CARE.
--- NOTE | 2019-11-09 19:31 | NUR ---
RECEIVED BEDSIDE REPORT FROM DAY SHIFT NURSE, PT OFF NC. BREATHING EVEN AND UNLABORED. PT KEEP TAKING NC OFF. IV ON THE LEFT FOREARM 20G WITH NS PT. G-TUBE PRESENT AND IS FLUSHING. FALL AND SEIZURE PRECAUTIONS INITIATED. CALL LIGHT WITHIN REACH. WILL CONTINUE TO MONITOR.
[2019-11-09 20:00] VITALS: BP 131/42
[2019-11-09] MEDS ORDERED: levETIRAcetam 100 MG/ML VIAL IV ONE (21:16)
[2019-11-09] MEDS: ATORVASTATIN 20 MG TAB GT SCH (21:37)
--- NOTE | 2019-11-09 21:37 | NUR ---
GIVEN LIPITOR, METOPROLOL, VITAMIN C, JIMI SURESH MD ORDERED. PT TOLERATED WELL.
--- NOTE | 2019-11-09 23:00 | NUR ---
PT HAD BM. CHANGED PT WITH ANN. YVETTE
[2019-11-10] VITALS: BP 121/54
[2019-11-10] MEDS: PIPERACILLIN/TAZOBACTAM 3.375 GM in DEXTROSE 5% 50 ML IV SCH ×4 (00:35→17:10)
--- NOTE | 2019-11-10 00:35 | NUR ---
GIVEN ZOSYN MD ORDERED. PT TOLERATED WELL.
--- NOTE | 2019-11-10 02:17 | NUR ---
PT SLEEPING IN BED COMFORTABLY. NO ACUTE DISTRESS NOTED.
[2019-11-10 04:00] VITALS: BP 112/41
--- NOTE | 2019-11-10 04:00 | NUR ---
VS CHECKED, WITHIN PT'S BASELINE. WILL CONTINUE TO MONITOR.
[2019-11-10 05:38] LABS: PROTHROMBIN TIME 11.5 secs (10.8-13.4)
[2019-11-10 05:39] LABS: ANION GAP 14.4 (8-16); CARBON DIOXIDE 22.8 mmol/L (21-32); CHLORIDE 109 mmol/L (98-107); GLUCOSE 116 mg/dL (74-106); POTASSIUM 4.2 mmol/L (3.5-5.1); SODIUM SERUM 142 mmol/L (136-145); UREA NITROGEN, BLOOD 16 mg/dL (7-18)
[2019-11-10] MEDS: BLOOD GLUCOSE MONITORING 1 DEV DEV FS SCH ×4 (05:53→20:28)
--- NOTE | 2019-11-10 05:53 | NUR ---
GIVEN ZOSYN MD ORDERED. PT TOLERATED WELL. BS CHECKED, 104. NO INSULIN COVERAGE NEEDED.
[2019-11-10 06:34] LABS: MAGNESIUM 2.1 mg/dL (1.8-2.4); PHOSPHORUS 3.3 mg/dL (2.5-4.9)
--- NOTE | 2019-11-10 06:57 | NUR ---
PT IN STABLE CONDITION. WILL ENDORSE TO DAY SHIFT NURSE FOR CONTINUOUS CARE.
--- NOTE | 2019-11-10 07:09 | NUR ---
RECEIVED REPORT FROM VENDING MACHINE REFILLER NURSE FOR CONTINUITY OF CARE. PT IS LYING IN BED, RIGHT LATERAL. AA&OX 1 RESPIRATIONS ARE EVEN AND UNLABORED, BREATHING TO RA. SKIN COLOR IS APPROPRIATE FOR ETHNICITY. SKIN IS INTACT. RT THIGH REDNESS NOTED. REVIEWED PLAN OF CARE WITH PATIENT. SAFETY MEASURES IN PLACE; CALL LIGHT WITHIN REACH, BED IN LOW POSITION. WILL CONTINUE TO MONITOR.
[2019-11-10] MEDS: ALBUTEROL SULFATE/IPRATROPIU 3 ML SOL IH SCH ×3 (07:26→19:31)
[2019-11-10 08:00] VITALS: BP 125/56
[2019-11-10] MEDS: DOCUSATE SODIUM 100 MG GELCAP PO SCH ×2 (09:00→20:28)
[2019-11-10 09:16] LABS: BASOPHILS # (AUTO) 0.1 K/uL (0.00-0.22); BASOPHILS % (AUTO) 0.6 % (0.0-2.0); EOSINOPHILS # (AUTO) 0.3 K/uL (0-0.4); EOSINOPHILS % (AUTO) 2.8 % (0.0-4.0); HEMATOCRIT 32.5 % (36-48); HEMOGLOBIN 10.7 g/dL (12.0-16.0); LYMPHOCYTES # (AUTO) 1.1 K/uL (2.5-16.5); LYMPHOCYTES % (AUTO) 12.5 % (20.5-51.1); MEAN CORPUSCULAR HEMOGLOBIN 31 pg (27-31); MEAN CORPUSCULAR HGB CONC 33 g/dL (33-37); MEAN CORPUSCULAR VOLUME 93.2 fL (80-94); MONOCYTES # (AUTO) 0.7 K/uL (0.8-1.0); NEUTROPHILS # (AUTO) 6.9 K/uL (1.8-7.7); NEUTROPHILS % (AUTO) 76.1 % (42.2-75.2); PLATELET COUNT (AUTO) 265 K/uL (140-450); RED BLOOD CELL COUNT(AUTO) 3.48 MIL/uL (4.20-5.40); RED CELL DISTRIBUTION WIDTH 14.3 % (11.6-13.7)
[2019-11-10] MEDS: LACTOBACILLUS RHAMNOSUS GG 1 EACH CAP PO SCH (09:35)
[2019-11-10] MEDS: ASPIRIN 81 MG TAB.CHEW GT SCH (09:35)
[2019-11-10] MEDS: CALCIUM CARB/VIT-D 500 MG/200 IU 1 TAB PO SCH (09:35)
[2019-11-10] MEDS: ASCORBIC ACID 500 MG TAB GT SCH ×2 (09:36→20:33)
[2019-11-10] MEDS: METOPROLOL 25 MG TAB GT SCH (09:37)
[2019-11-10] MEDS: FUROSEMIDE 20 MG TAB GT SCH (09:37)
[2019-11-10] MEDS: PARoxetine 10 MG TAB PO SCH (09:38)
[2019-11-10] MEDS: levETIRAcetam 500 MG in NACL 0.9% 100 ML IV SCH ×2 (09:59→20:33)
--- NOTE | 2019-11-10 10:00 | NUR ---
SCHEDULED MEDS DUE, GIVEN. OSCAR HELD DUE TO 4 BMS LAST NIGHT.
[2019-11-10 12:00] VITALS: BP 116/52
[2019-11-10] MEDS: NACL 0.9% 1,000 ML IV SCH (15:52)
[2019-11-10 16:00] VITALS: BP 113/57
[2019-11-10] MEDS: WARFARIN 1 MG TAB PO SCH (17:10)
--- NOTE | 2019-11-10 19:15 | NUR ---
REPORT WAS GIVEN TO EXHIBIT CARPENTER NURSE, FOR CONTINUITY OF CARE. PT IS IN STABLE CONDITION.
--- NOTE | 2019-11-10 19:16 | NUR ---
RECEIVED REPORT FROM DAY NURSE FOR CONTINUITY OF CARE. PT IS LYING IN BED, RIGHT LATERAL. AA&OX 1 RESPIRATIONS ARE EVEN AND UNLABORED, BREATHING TO RA. SKIN COLOR IS APPROPRIATE FOR ETHNICITY. SKIN IS INTACT. RT THIGH REDNESS NOTED. PT HAS PLATA CATH DRAINING CLEAR YELLOW URINE. GTUBE TO GLUCERNA 1.2 AT 50ML/H. REVIEWED PLAN OF CARE WITH PATIENT. SAFETY MEASURES IN PLACE; CALL LIGHT WITHIN REACH, BED IN LOW POSITION. WILL CONTINUE TO MONITOR.
[2019-11-10 20:00] VITALS: BP 117/72
--- NOTE | 2019-11-10 20:00 | NUR ---
SPOKE WITH GRANDDAUGHTER STEVEN. PER DAUGHTER PT EATS SOFT FOODS WILL ENDORSE TO MD FOR SWALLOW EVAL.
[2019-11-10] MEDS: ATORVASTATIN 20 MG TAB GT SCH (20:33)
[2019-11-10] MEDS: METOPROLOL 50 MG TAB GT SCH (20:33)
--- NOTE | 2019-11-10 20:33 | NUR ---
VSS. KIRSTEN MEDICATIONS GIVEN PER ORDERS. HELD COLACE D/T PT WITH 3 SOFT BMS TODAY. PT WITH LESS THAN 10CC RESIDUAL IS TOLERATING FEEDING WELL. HOB ELEVATED. ALL SAFETY MEASURES ARE IN PLACE. WILL CONTINUE TO MONITOR.
--- NOTE | 2019-11-10 22:30 | NUR ---
NEW TUBE FEEDING STARTED PER ORDERS. PT WITH NO RESIDUALS. HOB ELEVATED. SAFETY MEASURES ARE IN PLACE.
[2019-11-11] VITALS: BP 119/53
--- NOTE | 2019-11-11 | NUR ---
VITAL SIGNS ARE STABLE. ALL SAFETY MEASURES ARE IN PLACE. CALL LIGHT IS WITHIN REACH. WILL CONTINUE TO MONITOR.
[2019-11-11] MEDS: PIPERACILLIN/TAZOBACTAM 3.375 GM in DEXTROSE 5% 50 ML IV SCH ×5 (00:09→23:49)
--- NOTE | 2019-11-11 02:15 | NUR ---
PT IS SLEEPING COMFORTABLY IN BED WITH EYES CLOSED. CHEST RISE AND FALL NOTED. CALL LIGHT IS WITHIN REACH.
[2019-11-11 04:00] VITALS: BP 112/52
--- NOTE | 2019-11-11 04:10 | NUR ---
PTS VITAL SIGNS ARE WITHIN NORMAL LIMITS. ALL SAFETY MEASURES ARE IN PLACE. CALL LIGHT IS WITHIN REACH.
[2019-11-11] MEDS ORDERED: CRUSHER, PILL MC ONE (06:16)
[2019-11-11] MEDS: BLOOD GLUCOSE MONITORING 1 DEV DEV FS SCH ×4 (06:23→19:48)
--- NOTE | 2019-11-11 07:04 | NUR ---
PT IS LAYING COMFORTABLY IN BED WITH EYES CLOSED.NO S/S OF DISTRESS. PT IS STABLE. WILL ENDORSE TO DAY RN.
--- NOTE | 2019-11-11 07:09 | NUR ---
RECEIVED PT FROM NIGHT RN. IN BED, AWAKE, ALERT, AAOX1, RESPIRATIONS IS EVEN AND UNLABORED. IV SITE RIGHT LH 24G ON NS AT 60CC/HR. PATENT AND INTACT. SKIN INTACT. ON RA. CALL LIGHT WITHIN REACH. REVIEWED PLAN OF CARE. SAFETY MEASURES IN PLACE. WILL CONTINUE TO MONITOR.
[2019-11-11] MEDS: ALBUTEROL SULFATE/IPRATROPIU 3 ML SOL IH SCH ×3 (07:22→20:26)
[2019-11-11 08:00] VITALS: BP 121/61
[2019-11-11 08:23] LABS: BASOPHILS % (AUTO) 0.5 % (0.0-2.0); EOSINOPHILS # (AUTO) 0.4 K/uL (0-0.4); EOSINOPHILS % (AUTO) 4.4 % (0.0-4.0); HEMATOCRIT 32.5 % (36-48); HEMOGLOBIN 10.7 g/dL (12.0-16.0); LYMPHOCYTES # (AUTO) 1.5 K/uL (2.5-16.5); LYMPHOCYTES % (AUTO) 16.2 % (20.5-51.1); MEAN CORPUSCULAR HEMOGLOBIN 31 pg (27-31); MEAN CORPUSCULAR HGB CONC 33 g/dL (33-37); MONOCYTES # (AUTO) 0.7 K/uL (0.8-1.0); MONOCYTES % (AUTO) 7.6 % (1.7-9.3); NEUTROPHILS # (AUTO) 6.5 K/uL (1.8-7.7); NEUTROPHILS % (AUTO) 71.3 % (42.2-75.2); PLATELET COUNT (AUTO) 233 K/uL (140-450); RED BLOOD CELL COUNT(AUTO) 3.49 MIL/uL (4.20-5.40); RED CELL DISTRIBUTION WIDTH 14.6 % (11.6-13.7); WHITE BLOOD COUNT (AUTO) 9.1 K/uL (4.8-10.8)
[2019-11-11] MEDS: NACL 0.9% 1,000 ML IV SCH (08:32)
[2019-11-11 08:38] LABS: ANION GAP 12.6 (8-16); CARBON DIOXIDE 23.8 mmol/L (21-32); CHLORIDE 106 mmol/L (98-107); GLUCOSE 137 mg/dL (74-106); POTASSIUM 3.4 mmol/L (3.5-5.1); SODIUM SERUM 139 mmol/L (136-145); UREA NITROGEN, BLOOD 20 mg/dL (7-18)
[2019-11-11 08:43] LABS: PHOSPHORUS 3.4 mg/dL (2.5-4.9)
--- NOTE | 2019-11-11 09:00 | NUR ---
DUE MEDS GIVEN VIA GT. TOLERATED WELL. IN STABLE CONDITION
[2019-11-11] MEDS: ASPIRIN 81 MG TAB.CHEW GT SCH (09:05)
[2019-11-11] MEDS: levETIRAcetam 500 MG in NACL 0.9% 100 ML IV SCH ×2 (09:05→20:15)
[2019-11-11] MEDS: ASCORBIC ACID 500 MG TAB GT SCH ×2 (09:05→20:16)
[2019-11-11] MEDS: PARoxetine 10 MG TAB PO SCH (09:06)
[2019-11-11] MEDS: DOCUSATE SODIUM 100 MG GELCAP PO SCH ×2 (09:06→20:16)
[2019-11-11] MEDS: FUROSEMIDE 20 MG TAB GT SCH (09:06)
[2019-11-11] MEDS: LACTOBACILLUS RHAMNOSUS GG 1 EACH CAP PO SCH (09:06)
[2019-11-11] MEDS: METOPROLOL 50 MG TAB GT SCH ×2 (09:06→20:15)
[2019-11-11] MEDS: CALCIUM CARB/VIT-D 500 MG/200 IU 1 TAB PO SCH (09:06)
--- NOTE | 2019-11-11 10:00 | NUR ---
DISCHARGE PLANNING: THIS IS AN 88 Y/O FEMALE PATIENT FROM [facility] (HALF-WAY PATIENT), WHO WAS BIBA DUE TO RESPIRATORY DISTRESS X1 DAY. PAST MEDICAL HISTORY INCLUDE CVA, APHASIA, DYSPHAGIA WITH G TUBE, DM, GERD, HTN, SEIZURE DISORDER. INITIAL DIAGNOSIS OF ASPIRATION PNA. CURRENT LABS INCLUDE WBC 9.1, H/H 10.7/32.5, NA/K 139/3.4, BUN/CREA 20/1.0. NEGATIVE FOR INF A AND B. ON ZOSYN. ON LASIX PO AND WARFARIN. BLOOD C/S NO GROWTH AFTER 48 HOURS. URINE C/S NEGATIVE. NO ISOLATED MRSA NARES. SPUTUM C/S STILL PRELIMINARY RESULTS YEAST. PULMO, CARDIO, GI AND ID CONSULTS IN PLACE. DC PLAN BACK TO [facility] ONCE STABLE. Addendum: 11/12/19 at 1012 by Carmen Whiteside CM DC PLANNING: PATIENT A DC ORDER TOGO BACK TO [facility] ,FAXED ALL THE PAPERWORK TO [facility] WAITING FOR THE BED. CM TO FOLLOW. Addendum: 11/12/19 at 1224 by Carmen Whiteside CM DC PLANNING: RECEIVED A CALL FROM AYALA CASTAÑEDA ACCEPTED PT CAN GO TO ROOM 11A . ARRANGED TRANSPORT WITH [employer] TECHNOLOGIST TIME 3PM AND PER JENIFFER (LOADER) TRANSPORT BILL WILL BE [facility]. NOTIFIED WILLY AVILA
--- NOTE | 2019-11-11 10:40 | NUR ---
PT ASLEEP IN BED. NO APPARENT DISTRESS
--- NOTE | 2019-11-11 11:45 | NUR ---
BLOOD SUGAR CHECKED- 120
[2019-11-11 12:00] VITALS: BP 111/58
[2019-11-11] MEDS ORDERED: POTASSIUM CHLORIDE 10 MEQ TABER PO SCH (12:00)
[2019-11-11 16:00] VITALS: BP 118/62
[2019-11-11] MEDS ORDERED: WARFARIN 1 MG TAB PO SCH (17:00)
--- NOTE | 2019-11-11 19:15 | NUR ---
ENDORSED TO BRAZER CRAWLER TORCH FOR CONTINUITY OF CARE.. PT IN STABLE CONDITION
--- NOTE | 2019-11-11 19:23 | NUR ---
RECEIVED REPORT FROM DAY NURSE FOR CONTINUITY OF CARE. PT IS LYING IN BED, RIGHT LATERAL. AA&OX 1. APHASIC. RESPIRATIONS ARE EVEN AND UNLABORED, BREATHING TO RA. SKIN COLOR IS APPROPRIATE FOR ETHNICITY. SKIN IS INTACT. RT THIGH REDNESS NOTED. PT HAS PLATA CATH DRAINING CLEAR YELLOW URINE. G-TUBE TO GLUCERNA 1.2 AT 50ML/H. REVIEWED IV ON L HAND 24G NS AT 60M/H. PLAN OF CARE WITH PATIENT. SAFETY MEASURES IN PLACE; CALL LIGHT WITHIN REACH, BED IN LOW POSITION. WILL CONTINUE TO MONITOR.
[2019-11-11 20:00] VITALS: BP 110/63
--- NOTE | 2019-11-11 20:15 | NUR ---
VSS. BLOOD SUGAR 129 NO COVERAGE NEEDED. ADMINISTERED KIRSTEN MEDICATIONS PER ORDERS PT WITH NO RESIDUALS NOTED. HOB ELEVATED. ALL SAFETY MEASURES ARE IN PLACE. CALL LIGHT IS WITHIN REACH. WILL CONTINUE TO MONITOR.
[2019-11-11] MEDS: ATORVASTATIN 20 MG TAB GT SCH (20:16)
--- NOTE | 2019-11-11 20:32 | NUR ---
RECEIVED REPORT FROM AM SHIFT. PATIENT WAS RESTING IN BED WITH HOB > 30 DEGREES. PATIENT IN NO APPARENT RESPIRATORY DISTRESS AT THIS TIME: RR 20, HR 61, SPO2 98% ON ROOM AIR, AND CLEAR BILATERALLY BREATH SOUNDS. HHN TX GIVEN ORDERED, AND PATIENT TOLERATED TX WELL WITH NO ADVERSE REACTION. PATIENT WAS INFORMED TO CALL RN OR INFANTRY INDIRECT FIRE CREWMEMBER FOR PRN TX WHEN EXPERIENCING SOB. WILL CONTINUE TO MONITOR PATIENT.
--- NOTE | 2019-11-11 22:30 | NUR ---
PATIENT WITH NO RESIDUALS. NEW FEEDING BAG STARTED AT THIS TIME PER ORDERS. ALL SAFETY MEASURES ARE IN PLACE. CALL LIGHT IS WITHIN REACH. WILL CONTINUE TO MONITOR.
[2019-11-12] VITALS: BP 125/57
--- NOTE | 2019-11-12 | NUR ---
VITAL SIGNS ARE WITHIN NORMAL LIMITS. FLACC 0. NO S/S OF DISTRESS. ALL SAFETY MEASURES ARE IN PLACE. CALL LIGHT IS WITHIN REACH. WILL CONTINUE NO MONITOR.
[2019-11-12] MEDS: NACL 0.9% 1,000 ML IV SCH (01:14)
--- NOTE | 2019-11-12 02:13 | NUR ---
PATIENT IS AWAKE LAYING COMFORTABLY IN BED. CHEST RISE AND FALL NOTED. ALL SAFETY MEASURES ARE IN PLACE. WILL CONTINUE TO MONITOR.
[2019-11-12 04:00] VITALS: BP 129/61
--- NOTE | 2019-11-12 04:00 | NUR ---
VITAL SIGNS ARE WITHIN NORMAL LIMITS. PT IS AWAKE LAYING COMFORTABLY IN BED WITH EYES OPEN. PT REPOSITION FOR COMFORT. HOB ELEVATED. ALL SAFETY MEASURES ARE IN PLACE. WILL CONTINUE TO MONITOR.
[2019-11-12] MEDS: PIPERACILLIN/TAZOBACTAM 3.375 GM in DEXTROSE 5% 50 ML IV SCH ×2 (05:17→12:39)
[2019-11-12 06:27] LABS: BASOPHILS % (AUTO) 0.4 % (0.0-2.0); EOSINOPHILS # (AUTO) 0.6 K/uL (0-0.4); EOSINOPHILS % (AUTO) 5.5 % (0.0-4.0); HEMATOCRIT 34.2 % (36-48); HEMOGLOBIN 11.2 g/dL (12.0-16.0); LYMPHOCYTES # (AUTO) 1.8 K/uL (2.5-16.5); MEAN CORPUSCULAR HEMOGLOBIN 31 pg (27-31); MEAN CORPUSCULAR HGB CONC 33 g/dL (33-37); MEAN CORPUSCULAR VOLUME 93.5 fL (80-94); MONOCYTES # (AUTO) 0.7 K/uL (0.8-1.0); MONOCYTES % (AUTO) 6.6 % (1.7-9.3); NEUTROPHILS # (AUTO) 7.3 K/uL (1.8-7.7); NEUTROPHILS % (AUTO) 70.5 % (42.2-75.2); PLATELET COUNT (AUTO) 245 K/uL (140-450); RED BLOOD CELL COUNT(AUTO) 3.65 MIL/uL (4.20-5.40); RED CELL DISTRIBUTION WIDTH 14.6 % (11.6-13.7); WHITE BLOOD COUNT (AUTO) 10.4 K/uL (4.8-10.8)
--- NOTE | 2019-11-12 06:45 | NUR ---
BLOOD SUGAR 113 NO COVERAGE NEEDED. PT IS LAYING COMFORTABLY IN BED WITH EYES CLOSED CHEST RISE AND FALL NOTED. PT IS STABLE. WILL ENDORSE TO DAY RN.
[2019-11-12 06:50] LABS: MAGNESIUM 2.2 mg/dL (1.8-2.4); PHOSPHORUS 3.6 mg/dL (2.5-4.9)
[2019-11-12 06:52] LABS: ANION GAP 14.1 (8-16); CHLORIDE 109 mmol/L (98-107); CREATININE 0.9 mg/dL (0.6-1.3); GLUCOSE 120 mg/dL (74-106); POTASSIUM 4.1 mmol/L (3.5-5.1); SODIUM SERUM 142 mmol/L (136-145); UREA NITROGEN, BLOOD 17 mg/dL (7-18)
[2019-11-12] MEDS: ALBUTEROL SULFATE/IPRATROPIU 3 ML SOL IH SCH ×2 (07:08→13:35)
--- NOTE | 2019-11-12 07:10 | NUR ---
RECEIVED REPORT FROM NIGHT NURSE FOR CONTINUITY OF CARE, PT IS APHASIC, PT IS AWAKE, PT IS STABLE, NO SIGNS OF RESPIRATORY DISTRESS, RT IN ROOM WITH PT GIVING PT A BREATHING TREATMENT, PT HAS LEFT HAND 24G INFUSING NS AT 60 ML/H, PT HAS A G-TUBE INFUSING GLUCERNA 1.2 AT 50ML/H WITH A WATER FLUSH OF 100ML Q4H, PT HAS A PLATA CATHETER, SAFETY MEASURES IN PLACE, INTRODUCE SELF, UPDATED WHITEBOARD, CALL LIGHT WITHIN REACH, WILL CONTINUE TO MONITOR.
[2019-11-12] MEDS: BLOOD GLUCOSE MONITORING 1 DEV DEV FS SCH ×3 (07:50→16:30)
[2019-11-12 08:00] VITALS: BP 143/80
[2019-11-12] MEDS: levETIRAcetam 500 MG in NACL 0.9% 100 ML IV SCH (08:54)
[2019-11-12] MEDS: ASCORBIC ACID 500 MG TAB GT SCH (08:56)
[2019-11-12] MEDS: FUROSEMIDE 20 MG TAB GT SCH (08:56)
[2019-11-12] MEDS: ASPIRIN 81 MG TAB.CHEW GT SCH (08:56)
[2019-11-12] MEDS: CALCIUM CARB/VIT-D 500 MG/200 IU 1 TAB PO SCH (08:57)
[2019-11-12] MEDS: METOPROLOL 50 MG TAB GT SCH (08:57)
[2019-11-12] MEDS: LACTOBACILLUS RHAMNOSUS GG 1 EACH CAP PO SCH (08:57)
[2019-11-12] MEDS: PARoxetine 10 MG TAB PO SCH (08:57)
[2019-11-12] MEDS: DOCUSATE SODIUM 100 MG GELCAP PO SCH (08:58)
--- NOTE | 2019-11-12 09:00 | NUR ---
ADMINISTERED ORDERED MEDICATION, EDUCATION GIVEN, PT TOLERATED MEDICATION WELL VIA G-TUBE, PT IS STABLE, CALL LIGHT WITHIN REACH, BED ALARM ON.
--- NOTE | 2019-11-12 11:00 | NUR ---
PT RESTING IN BED, PT IS STABLE, SAFETY MEASURES IN PLACE, CALL LIGHT WITHIN REACH.
[2019-11-12 12:00] VITALS: BP 121/59
--- NOTE | 2019-11-12 12:01 | NUR ---
ST NOTE S: SWALLOW EVAL WAS RECEIVED AND VERIFIED. RN, PROSPER, CLEARED Pt FOR SWALLOW EVAL. Pt WAS AWAKE, AMS, NON-VERBAL, RESPONSIVE, WITH VARIED COOPERATION. Pt WAS ADMITTED FROM SNF WITH ABDOMINAL WALL BRUISING, SEPSIS LIKELY D/T ASP PNA, ACUTE RESPIRATORY DISTRESS. Pt RECENTLY PULLED OUT PEG, AND REPLACED. Pt HAS HX OF DYSPHAGIA W/ PEG, NON-VERBAL, BEDBOUND, AMS, CVA, APHASIC, AFIB, DM, CELLULITIS, DEPRESSION, GERD, HTN, SEIZURE, DVT PROPHYLAXIS. CHT (-). CXR 11/11/19 INDICATED DIFFUSE INTERSTITIAL EDEMA AND RETICULAR PULMONARY OPACITIES REMAIN. RN NOTED SNF REPORTED Pt's FAMILY FEEDS Pt PUREE AND THICKENED LIQUIDS. O: SWALLOW EVAL COMPLETED. A: Pt HAS MIN TOP AND MODERATE BOTTOM OWN DENTITION. INADEQUATE FOR MASTICATION. Pt WAS ABLE TO TOLERATE ICE CHIPS, PUREE BY 1/2 TSP, AND HONEY THICK LIQUIDS BY 1/2 TSP W/O OVERT S/S OF ASPIRATION OR PENETRATION NOTED. Pt DEMONSTRATED RIGHT SIDED LABIAL LEAKAGE, MILD, WITH ICE AND LIQUIDS. Pt DEMONSTRATED DELAYED AP TRANSFER FOLLOWED BY TIMELY SWALLOW RESPONSE AND FULL LARYNGEAL ELEVATION AND EXCURSION. Pt's COOPERATION VARIED, AND REFUSED MULTIPLE BOLUS PRESENTATIONS BY ST. FULL PO DIET IS NOT RECOMMENDED D/T Pt's AMS, INABILITY TO FOLLOW DIRECTIONS, DELAYED AP TRANSFER, AND VARIED COOPERATION, WHICH INCREASES RISK OF ASPIRATION. P: REC TO CONTINUE PEG FOR MAIN NUTRITION, WITH ORAL GRATIFICATION ONLY OF PUREE AND HONEY THICK LIQUIDS BY 1/2 TSP ONLY (1-2 OZ LONG Pt IS COOPERATIVE AND FULLY AWAKE). ASPIRATION PRECAUTIONS, ORAL CARE, AND FEEDER NEEDED. ADDITIONAL SKILLED ST NOT INDICATED AT THIS TIME. ELLY ONEAL, MS, CCC-BELLY DANCER
--- NOTE | 2019-11-12 12:41 | NUR ---
ADMINISTERED ORDERED MEDICATION, EDUCATION GIVEN, PT TOLERATED WELL, PT IS STABLE, CALL LIGHT WITHIN REACH.
--- NOTE | 2019-11-12 13:00 | NUR ---
PT IN BED, NO SIGNS OF DISTRESS NOTED, CALL LIGHT WITHIN REACH, SAFETY MEASURES IN PLACE.
--- NOTE | 2019-11-12 15:00 | NUR ---
PT RESTING IN BED, NO SIGNS OF DISTRESS NOTED, CALL LIGHT WITHIN REACH.
--- NOTE | 2019-11-12 16:40 | NUR ---
DISCHARGED PT BACK TO [facility], CALLED KIT JONES AND LEFT A VOICE MAIL. PT DISCHARGED VIA [facility], PT STABLE, PNA AND FLU UP TO DATE.
[2019-11-12] MEDS ORDERED: WARFARIN 5 MG TAB PO SCH (17:00)
== END 2019-11-12 16:40 | DRG 720 ==
LOC: MED 00:39 → MTU 06:35
PROVIDERS: ADMIT General Practice; ATTEND General Practice
DX: A41.9 Sepsis, unspecified organism (principal); J69.0 Pneumonitis due to inhalation of food and vomit; G93.40 Encephalopathy, unspecified; J90 Pleural effusion, not elsewhere classified; R13.10 Dysphagia, unspecified; I48.91 Unspecified atrial fibrillation; I69.351 Hemiplegia and hemiparesis following cerebral infarction affecting right dominant side; Z93.1 Gastrostomy status; R47.01 Aphasia; G40.909 Epilepsy, unspecified, not intractable, without status epilepticus; D64.9 Anemia, unspecified; E11.9 Type 2 diabetes mellitus without complications; E78.5 Hyperlipidemia, unspecified; F32.9 Major depressive disorder, single episode, unspecified; I10 Essential (primary) hypertension; N39.0 Urinary tract infection, site not specified; K21.9 Gastro-esophageal reflux disease without esophagitis; E87.6 Hypokalemia; Z79.82 Long term (current) use of aspirin; Z79.899 Other long term (current) drug therapy
CPT/HCPCS: 36415; 51702; 70450; 71045; 71275; 80048; 80053; 81001; 82140; 82948; 83036; 83605; 83690; 83735; 83880; 84100; 84134; 84443; 84484; 85025; 85610; 85730; 87040; 87070; 87081; 87086; 87205; 87804; 92610; 93005; 93925; 93970; 94640; 96361; 96365; 96367; 96375; 99285; J1815; J1953; J2060; J2543; J3370; J3490; J7030; J7060; J7644; Q0092; Q9967

== ENCOUNTER 2019-11-25 07:22 | Observation (INO) | payer MEDICARE, MEDICAID ==
[~2019-11-25] VITALS: Ht 154.9 cm; Wt 56.7 kg
[~2019-11-25 07:22] MED LIST changes: +CALC-53 PO; +DOCU-299 PO; +DULO20EC PO; -LACT500C2 GT; +LOPE2CAP5 PO; +PAX10 PO
--- NOTE | 2019-11-25 07:22 | NUR ---
Patient BIBA BLS, transferred to bed 2. RN evaluating patient at bedside.
[2019-11-25 07:37] VITALS: BP 142/75
--- NOTE | 2019-11-25 07:37 | NUR ---
89 Y/O F [facility] FROM [facility] C/C G-TUBE DISPLACEMENT THIS MORNING. PER EMS PT PULLED G-TUBE OUT OF PLACE. PT ASYMPTOMATIC. VSS STABLE. PT GCS 9. G-TUBE SITE SKIN WDL. SIDE RAIL X2. RX,HX- SEE CHART
--- NOTE | 2019-11-25 07:50 | NUR ---
ERMD AT BEDSIDE
--- NOTE | 2019-11-25 08:01 | NUR ---
CALLED TABULATING CLERK FOR A 16 F G-TUBE
--- NOTE | 2019-11-25 08:47 | NUR ---
PT RESTING IN BED, SIDE RAIL X2
--- NOTE | 2019-11-25 08:59 | NUR ---
PER INVESTMENT TRADER NO 16 F G TUBE AVAILABLE ERMD NOTIFIED
[2019-11-25] MEDS ORDERED: LORazepam 2 MG/ML VIAL IVP PRN (09:30)
[2019-11-25] MEDS ORDERED: MORPHINE SULFATE 4 MG/ML SYR IVP PRN (09:30)
[2019-11-25] MEDS ORDERED: ACETAMINOPHEN 325 MG TAB PO PRN (09:30)
[2019-11-25] MEDS ORDERED: ONDANSETRON 4 MG/2 ML VIAL IVP PRN (09:30)
[2019-11-25] MEDS: LACTATED RINGERS 1,000 ML IV SCH ×3 (10:07→23:46)
--- NOTE | 2019-11-25 11:05 | NUR ---
PT RESTING IN BED, SIDE RAIL X2 TOLERATING FLUIDS
--- NOTE | 2019-11-25 13:12 | NUR ---
PT RESTING IN BED, SIDE RAIL X2
--- NOTE | 2019-11-25 13:18 | NUR ---
PT REPOSITIONED WITH RN ASSIST STABLE, CALM, SIDE RAIL X2
[2019-11-25 15:00] VITALS: BP 158/82
--- NOTE | 2019-11-25 15:00 | NUR ---
PT CAME TO UNIT VIA [facility] ACCOMPANIED BY ER NURSE CB. PT DX WAS G TUBE DISPLACEMENT. ACCORDING TO ER NURSE PT'S G TUBE SIZE IF 16F AND ER HAS ONLY [address] GUTIERREZ WILL SEE PATIENT. PT'S SKIN INTACT. IV TO LEFT HAND 20G. SKIN IN TACT. PT IS WAKE AND RESPONSIVE TO NAME. PT IS NOTED WITH G TUBE OPENING. PT IS NONVERBAL . ADMISSION ASSESSMENT DONE ON PATIENT. AOX1. NO DISTRESS NOTED. VITAL SIGNS WITHIN NORMAL LEVELS BUT NOTED WITH BLOOD PRESSURE AT 152/82. SAFETY MEASURES IN PLACE WILL CONTINUE TO MONITOR. CALL LIGHT IN REACH.
--- NOTE | 2019-11-25 15:12 | NUR ---
Patient will be admitted to care of BRITNI. Admited to MS. Will go to room 121B. Belongings list completed. Report to TAWANA AVILA.
--- NOTE | 2019-11-25 17:51 | NUR ---
PT HAD A BOWEL MOVEMENT. NOTED WITH LOOSE STOOLS. NO DISTRESS NOTED. IV LACTATE RINGERS RUNNING AT 80ML. LEO CONTINUE TO MONITOR. CALL LIGHT IN REACH.
--- NOTE | 2019-11-25 19:18 | NUR ---
SHIFT REPORT GIVEN TO SOLDERER BARREL RIBS NURSE. PT IS IN STABLE CONDITION. NO DISTRESS NOTED. CALL LIGHT IN REACH.
--- NOTE | 2019-11-25 19:19 | NUR ---
RECD. RESTING IN BED, AWAKE, ALERT, APHASIC. CALM BUT KEEP ON TURNING IN BED. RESPIRATION EVEN AND UNLABORED. IV OF LR INFUSING AT 80 ML/HR, LEFT AC G20. GT SITE OPEN TO AIR DRY AND CLEAN. SAFETY MEASURES ENFORCED. BED IN THE LOWEST POSITION, SIDE RAILS UP, BED ON ALARM. PLAN OF CARE DISCUSSED. NEEDS REINFORCEMENT. NO APPEARANCE OF PAIN NOTED 0/10.
--- NOTE | 2019-11-25 19:20 | NUR ---
Patient's Plan of Care was discussed and reviewed with ANDREINA: BETZY. ALL NEEDS MET. WILL CONTINUE TO MONITOR.
[2019-11-25 20:00] VITALS: BP 146/65
--- NOTE | 2019-11-25 21:00 | NUR ---
RESTING IN BED, AWAKE. TURNED TO THE SIDE SIDE, NO APPEARANCE OF DISCOMFORT NOTED.
--- NOTE | 2019-11-25 21:32 | NUR ---
KEPPRA IS NOW INFUSING PER ORDERS. ALL SAFETY MEASURES ARE IN PLACE.
[2019-11-25] MEDS: levETIRAcetam 500 MG in NACL 0.9% 100 ML IV SCH (21:33)
--- NOTE | 2019-11-25 23:46 | NUR ---
NEW IV BAG OF LR AT 80 ML/HR STARTED.
[2019-11-26] VITALS: BP 148/63
--- NOTE | 2019-11-26 01:30 | NUR ---
IN BED ON HER RIGHT SIDE, OCCASIONALLY PUT OUT LEFT LEG OUT OF THE BED. REPOSITIONED BACK TO HEAD OF BED.
--- NOTE | 2019-11-26 03:30 | NUR ---
QUIET IN BED, AWAKE. NO DISTRESS NOTED.
[2019-11-26 04:00] VITALS: BP 111/72
--- NOTE | 2019-11-26 06:30 | NUR ---
PUT OUT LEFT LOWER EXTREMITY OUT OF BED, REPOSITIONED TO THE CENTER OF THE BED. SAFETY MAINTAINED.
--- NOTE | 2019-11-26 07:20 | NUR ---
RECEIVED REPORT FROM PROP AND SCENERY MAKER NURSE CATHY. PT RESTING IN BED, AOX1, BEDBOUND, WITH LEFT AC #20G RUNNING LR @80ML/HR. PT APHASIC. GT MISSING, CLEAN, THAW SHED HEATER TENDER. NO S/S OF RESPIRATORY DISTRESS OR DISCOMFORT NOTED AT THIS TIME. WILL CONTINUE TO MONITOR.
--- NOTE | 2019-11-26 07:20 | NUR ---
RESTING IN BED, RESPIRATION EVEN AND UNLABORED. CONDITION REMAIN STABLE. ENDORSED TO AM SHIFT NURSE FOR CONTINUITY OF CARE.
[2019-11-26 08:00] VITALS: BP 142/79
[2019-11-26] MEDS: levETIRAcetam 500 MG in NACL 0.9% 100 ML IV SCH (08:02)
--- NOTE | 2019-11-26 08:02 | NUR ---
SCHEDULED MEDICATION KEPPRA GIVEN AND TOLERATED WELL. NO S/S OF RESPIRATORY DISTRESS OR DISCOMFORT NOTED AT THIS TIME. WILL CONTINUE TO MONITOR.
--- NOTE | 2019-11-26 09:06 | NUR ---
PATIENT HAS BEEN SCREENED AND CATEGORIZED HIGH NUTRITION RISK. PATIENT WILL BE SEEN WITHIN 1-2 DAYS OF ADMISSION. 11/26/19-11/27/[address]
--- NOTE | 2019-11-26 09:41 | NUR ---
PT. ADMITTED WITH LOW LORETO SCALE AT RISK, CONTINUE TO FOLLOW PRESSURE ULCER PREVENTION INTERVENTIONS. -TURN AND REPOSITION PATIENT Q 2H -ASSESS AND MONITOR SKIN CONDITION DURING POSITION CHANGE -OFFLOAD BILATERAL HEELS BY PLACING PILLOWS UNDER CALVES AT ALL TIMES, UNLESS OTHERWISE CONTRAINDICATED -PRESSURE REDISTRIBUTION BY PLACING PILLOWS AND OFFLOADING SACRALCOCCYX -KEEP SKIN CLEAN AND DRY AT ALL TIMES.
--- NOTE | 2019-11-26 10:00 | NUR ---
PT RESTING IN BED. NO S/S OF RESPIRATORY DISTRESS OR DISCOMFORT NOTED AT THIS TIME. WILL CONTINUE TO MONITOR.
[2019-11-26] MEDS: LACTATED RINGERS 1,000 ML IV SCH ×3 (10:30→14:35)
--- NOTE | 2019-11-26 13:00 | NUR ---
PT RESTING IN BED. NO S/S OF RESPIRATORY DISTRESS OR DISCOMFORT NOTED AT THIS TIME. WILL CONTINUE TO MONITOR.
--- NOTE | 2019-11-26 13:10 | NUR ---
LEFT MESSAGES TO NEXT OF KIN AND PERSON OF CONTACT HOWEVER THERE WAS NO ANSWER. VOICEMAIL WAS LEFT FOR BOTH.
--- NOTE | 2019-11-26 13:23 | NUR ---
SPOKE WITH PT SON, ROBERT SAENZ AND WAS ABLE TO GET CONSENT OVER THE PHONE. ALMAZ JUSTICE WAS A WITNESS.
--- NOTE | 2019-11-26 14:01 | NUR ---
SPOKE TO AYALA FROM [facility] AND GAVE ME BED RM 6. MARGARITA LEE MADE AWARE.
--- NOTE | 2019-11-26 14:45 | NUR ---
MORPHINE GIVEN ORDERED BY DR. LIZETH CHAVEZ BEFORE GT PLACEMENT. PT TOLERATED WELL. NO S/S OF RESPIRATORY DISTRESS OR DISCOMFORT NOTED AT THIS TIME. WILL CONTINUE TO MONITOR.
--- NOTE | 2019-11-26 15:00 | NUR ---
G-TUBE INSERTED BY DR. LIZETH CHAVEZ. PT TOLERATED WELL. NO S/S OF RESPIRATORY DISTRESS OR DISCOMFORT NOTED AT THIS TIME. WILL CONTINUE TO MONITOR. AWAITING KUB ORDERS
--- NOTE | 2019-11-26 16:06 | NUR ---
SPOKE WITH HAI AND GAVE REPORT. PT IS BEING DC BACK TO [facility]. YVETTE CAST IS CHANGING PT INTO [place], READY FOR DC.
[2019-11-26 16:33] VITALS: BP 138/76
--- NOTE | 2019-11-26 18:25 | NUR ---
IV REMOVED, CATHETER INTACT. ID BANDS REMOVED. PT STABLE. TRANSPORTATION CAME TO MAIL CALLER PT VIA GURNEY BACK TO [facility].
== END 2019-11-26 18:30 ==
LOC: MED 07:22 → MTU 09:32 → INTOOBSV 14:57 → MTU 14:57 → UNDOADMOB 14:57
PROVIDERS: ADMIT Internal Medicine Pulmonary Disease; ATTEND Internal Medicine Pulmonary Disease
DX: K94.23 Gastrostomy malfunction (principal); R13.10 Dysphagia, unspecified; I69.398 Other sequelae of cerebral infarction; G93.49 Other encephalopathy; F03.90 Unspecified dementia, unspecified severity, without behavioral disturbance, psychotic disturbance, mood disturbance, and anxiety; I10 Essential (primary) hypertension; I48.91 Unspecified atrial fibrillation; G40.909 Epilepsy, unspecified, not intractable, without status epilepticus; E11.9 Type 2 diabetes mellitus without complications; F32.9 Major depressive disorder, single episode, unspecified; K21.9 Gastro-esophageal reflux disease without esophagitis; Z43.1 Encounter for attention to gastrostomy; Z79.82 Long term (current) use of aspirin; Z79.01 Long term (current) use of anticoagulants; Z79.899 Other long term (current) drug therapy
CPT/HCPCS: 43762; 74240; 87081; 96365; 96366; 96375; 99284; G0378; J1953; J2270; J7120; Q0092; 43760